=== PATIENT | female | born 1950 | race Caucasian/White ===

== ENCOUNTER 2019-11-21 10:27 | Outpatient (CLI) | payer MEDICARE, SELFPAY ==
--- NOTE | 2019-11-21 10:34 | EST_ITS ---
Patient Info Name: Josefa Curry Age: 69 years : 1950 Gender: Female Ht: 62 in Wt: 180 lbs BSA: 1.92 m2 Exam Date: 11/21/2019 10:46 AM Exam Location: [facility] Stress Patient Status: Outpatient Admit Date: 11/21/2019 Staff Ordering Physician: Sohail Charles MD Attending Provider: Sohail Charles MD Exercise Technologist: Jolynn Nicholson RDCS Nurse: Laurel Domingo, TED, ACNP- Exam Type: CA stress test treadmill Study Info Indications R07.9 - Chest pain, unspecified A treadmill exercise stress test was performed. Summary 1. Abnormal ST segment depression consistent with myocardial ischemia. 2. No exercise-induced chest pain. 3. Above average exercise capacity for age. Protocol: [place] Stress ECG Details Stage: REST Duration (min): 9 min : 7 sec Speed (mph): 0.0 Grade (%): 0 HR (bpm): 67 SBP (mmHg): 160 DBP (mmHg): 82 METS: --- Stage: REST Duration (min): 23 min : 14 sec Speed (mph): 0.0 Grade (%): 0 HR (bpm): 74 SBP (mmHg): 160 DBP (mmHg): 82 METS: --- Stage: STAGE 1 Duration (min): 1 min : 0 sec Speed (mph): 1.7 Grade (%): 10 HR (bpm): 94 SBP (mmHg): 160 DBP (mmHg): 82 METS: --- Stage: STAGE 1 Duration (min): 2 min : 0 sec Speed (mph): 1.7 Grade (%): 10 HR (bpm): 107 SBP (mmHg): 160 DBP (mmHg): 82 METS: --- Stage: STAGE 1 Duration (min): 3 min : 0 sec Speed (mph): 1.7 Grade (%): 10 HR (bpm): 110 SBP (mmHg): 160 DBP (mmHg): 82 METS: --- Stage: STAGE 2 Duration (min): 1 min : 0 sec Speed (mph): 2.5 Grade (%): 12 HR (bpm): 118 SBP (mmHg): 160 DBP (mmHg): 82 METS: --- Stage: STAGE 2 Duration (min): 2 min : 0 sec Speed (mph): 2.5 Grade (%): 12 HR (bpm): 121 SBP (mmHg): 185 DBP (mmHg): 88 METS: --- Stage: STAGE 2 Duration (min): 3 min : 0 sec Speed (mph): 2.5 Grade (%): 12 HR (bpm): 124 SBP (mmHg): 185 DBP (mmHg): 88 METS: --- Stage: STAGE 3 Duration (min): 1 min : 0 sec Speed (mph): 3.4 Grade (%): 14 HR (bpm): 133 SBP (mmHg): 183 DBP (mmHg): 88 METS: --- Stage: STAGE 3 Duration (min): 2 min : 0 sec Speed (mph): 3.4 Grade (%): 14 HR (bpm): 141 SBP (mmHg): 183 DBP (mmHg): 88 METS: --- Stage: STAGE 3 Duration (min): 3 min : 0 sec Speed (mph): 3.4 Grade (%): 14 HR (bpm): 145 SBP (mmHg): 185 DBP (mmHg): 81 METS: --- Stage: RECOVERY Duration (min): 0 min : 10 sec Speed (mph): 1.5 Grade (%): 0 HR (bpm): 145 SBP (mmHg): 185 DBP (mmHg): 81 METS: --- Stage: RECOVERY Duration (min): 0 min : 59 sec Speed (mph): 0.0 Grade (%): 0 HR (bpm): 120 SBP (mmHg): 171 DBP (mmHg): 77 METS: --- Stage: RECOVERY Duration (min): 1 m
== END 2019-11-21 10:28 | disposition home or self-care (01) ==
LOC: ANHCARD 10:30
PROVIDERS: PCP Family Medicine; Visit Provider Family Medicine
DX: R07.89 Other chest pain (principal)
CPT/HCPCS: 93017

== ENCOUNTER 2020-04-02 09:43 | Outpatient (CLI) | payer MEDICARE, SELFPAY ==
--- NOTE | ~2020-04-02 | MM_ITS ---
EXAMINATION: MM screening jo [facility] BI w sandra HISTORY: Screening mammogram TECHNIQUE: Craniocaudal and mediolateral oblique 3-D tomosynthesis images were obtained and synthetic 2-D images were generated. CAD analysis was submitted and interpreted. COMPARISON: 03/19/2019, 02/19/2018, 02/16/2017 bilateral digital screening mammogram examinations BREAST PARENCHYMAL COMPOSITION: There are scattered areas of fibroglandular density. FINDINGS: There is no evidence of suspicious mass, calcification, or architectural distortion to sugg est malignancy in either breast. There has been no suspicious interval change. IMPRESSION: 1. No mammographic evidence of malignancy. 2. Recommend routine screening mammography in one year. BI-RADS Category 1: Negative Reviewed, dictated and finalized at location A.
== END 2020-04-02 09:44 | disposition home or self-care (01) ==
PROVIDERS: PCP Family Medicine; Visit Provider Obstetrics & Gynecology Gynecology
DX: Z12.31 Encounter for screening mammogram for malignant neoplasm of breast (principal)
CPT/HCPCS: 77063; 77067

== ENCOUNTER 2020-06-13 02:02 | Outpatient (CLI) | payer MEDICARE, SELFPAY ==
[2020-06-13 20:09] LABS: SARS-CoV-2 RNA PCR Negative
== END 2020-06-13 02:03 | disposition home or self-care (01) ==
LOC: ANHCOVIDDT 02:02
PROVIDERS: PCP Family Medicine; Visit Provider Internal Medicine Gastroenterology
DX: Z01.812 Encounter for preprocedural laboratory examination (principal); Z20.822 Contact with and (suspected) exposure to COVID-19
CPT/HCPCS: C9803; U0003

== ENCOUNTER 2020-06-17 01:36 | Day surgery (SDC) | payer MEDICARE, SELFPAY ==
[2020-06-01 14:14] VITALS: BMI 31.4
[2020-06-17 08:19] VITALS: BP 125/73; PULSE 86; RESP 18; TEMP 36.6; O2SAT 96
[2020-06-17] MEDS: LACTATED RINGERS 1,000 ML 150 ML IV CONT (08:28)
--- NOTE | 2020-06-17 09:14 | WPDANESEPPF ---
Anes - Initial Pre Proc Eval Procedure: Operation Date: 06/17/20 09:15 Proposed Procedures p Screening Colonoscopy - Nick Rodriguez MD Date/Time: 06/17/20 09:14 Surgeon: Nick Rodriguez MD Pre Op Diagnosis: Neoplasm Screening Patient Data Age: 69 Gender: F Height: 5 ft 2 in Weight: 77.5 kg Last Vital Signs Temp 97.8 F 06/17/20 08:19 Pulse 86 06/17/20 08:19 Resp 18 06/17/20 08:19 BP 125/73 06/17/20 08:19 Pulse Ox 96 06/17/20 08:19 Allergies Allergy/AdvReac Type Severity Reaction Status Date / Time Iodinated Contrast Media Allergy Intermediate SHORT OF Verified 06/17/20 08:17 BREATH levofloxacin Allergy Intermediate Joint pain Verified 06/17/20 08:17 Home Medications Medication Instructions Recorded Confirmed Type levothyroxine 25 mcg capsule 25 mcg PO DAILY 05/17/19 06/01/20 History omeprazole 40 mg capsule,delayed 40 mg PO DAILY 05/17/19 06/01/20 History release polyethylene glycol 3350 17 17 gm PO DAILY 05/17/19 06/01/20 History gram/dose oral powder nitroglycerin 0.4 mg sublingual 0.4 mg SUBLINGUAL Q5M PRN #30 11/21/19 06/01/20 Rx tablet tablet ascorbic acid (vitamin C) 1,000 mg 1 gm PO DAILY 02/18/20 06/01/20 History tablet metoprolol succinate 25 mg 25 mg PO DAILY #90 tablet 03/09/20 06/01/20 Rx tablet,extended release 24 hr LIrwin ire[place]-LIrwin tellez-Nica hall-L. rham 1 cap PO DAILY 06/01/20 06/01/20 History [AZO Complete Feminine Balance] aspirin [Adult Low Dose Aspirin] 81 mg PO DAILY 06/01/20 06/01/20 History atorvastatin 10 mg PO DAILY 06/01/20 06/01/20 History calcium carbonate-vitamin D3 1 tablet PO DAILY 06/01/20 06/01/20 History [Calcium with Vitamin D] Patient hx anesthesia problems: none Family hx anesthesia problems: none PMFSH Past Medical History Medical History (Updated 06/17/20 @ 09:13 by Дмитрий Aj MD) Atrial flutter Chronic cystitis without hematuria Hypertension Hypothyroidism Mixed hyperlipidemia Surgical History Surgical History Status post hemorrhoidectomy Status post hysterectomy Status post laparoscopic cholecystectomy Status post tubal ligation Family History Family History Mother Hypertension Carcinoma of colon Family history of diabetes mellitus in first degree relative Diabetes mellitus Patient's mother is in good health Family history of elevated blood lipids Father Family history of elevated blood lipids Family history of coronary artery disease Diabetes mellitus, Onset Age: 77 Hypertension, Onset Age: 77 Family history of cardiovascular disease, Onset Age: 77 Acute myocardial infarction, Onset Age: 75 Sibling Family history of pancreatic cancer, Onset Age: 54 Patient's brother is Diabetes mellitus Hypertension Other Family history of thyroid disease Social History Social History Smoking packs per day: 1 Smoking cigarettes per day: 20.0 Years smoked: 15 Smoking pack-years: 15.00 Smoking status: Former smoker Tobacco type: cigarettes Second hand tobacco smoke exposure: No Smoking end date: 06/12/93 Alcohol intake: current Drinks per week: 0 Substance use: never Substance use type: does not use Gender identity (if verbalized by the patient): Female Spiritual care concerns: No Anes - Eval Final PreProcedure Day of Procedure 06/17/20 09:14 Patient weight: overweight Heart: regular rate and rhythm Lungs: clear to auscultation Airway: Mallampati scale class II Neurological: alert and oriented Last oral intake: >/= 8 hours ASA classification: III Emergent: no Anesthetic plan: proceed Anesthesia type and monitoring: general GIVS and standard monitoring Informed Consent: The patient's anesthetic plan and its attendant risks and b
--- NOTE | 2020-06-17 09:38 | PM.HPGS ---
History of Present Illness History of Present Illness Consent: Risks, benefits, and alternatives have been discussed and questions answered. Patient agrees to proceed with procedure. Chief complaint: Neoplasm Screening Narrative: Josefa Curry is a 69 year old female with colon polyps 2016 and mother with colon cancer. Review of Systems Constitutional: Constitutional: Denies headache(s) and Denies weakness Eyes: Eyes: Denies blurry vision ENT: Reports Normal hearing present, Denies headache(s) and Denies neck pain Cardiovascular: Cardiovascular: Denies chest pain and Denies dyspnea Respiratory: Respiratory: Denies dyspnea Gastrointestinal: Gastrointestinal: Reports no additional gastrointestinal complaints Genitourinary: Genitourinary: Denies dysuria Musculoskeletal: Musculoskeletal: Denies neck pain Integumentary/Breasts: Skin/Breast: Denies dry skin Neurologic: Reports Normal hearing present, Denies headache(s) and Denies weakness Psychiatric: Psychiatric: Denies anxiety Endocrine: Endocrine: Denies change in body appearance Hematologic/Lymphatic: Hematologic/Lymphatic: Denies easy bleeding Allergic/Immunologic: Allergic/Immunologic: Denies urticaria PMFSH Past Medical History Medical History (Updated 06/17/20 @ 09:38 by Nick Rodriguez MD) Atrial flutter Chronic cystitis without hematuria Family history of colon cancer in mother Hypertension Hypothyroidism Mixed hyperlipidemia Surgical History Surgical History Status post hemorrhoidectomy Status post hysterectomy Status post laparoscopic cholecystectomy Status post tubal ligation Family History Family History Mother Hypertension Carcinoma of colon Family history of diabetes mellitus in first degree relative Diabetes mellitus Patient's mother is in good health Family history of elevated blood lipids Father Family history of elevated blood lipids Family history of coronary artery disease Diabetes mellitus, Onset Age: 77 Hypertension, Onset Age: 75 Family history of cardiovascular disease, Onset Age: 77 Acute myocardial infarction, Onset Age: 75 Sibling Family history of pancreatic cancer, Onset Age: 54 Patient's brother is Diabetes mellitus Hypertension Other Family history of thyroid disease Social History Social History Smoking packs per day: 1 Smoking cigarettes per day: 20.0 Years smoked: 15 Smoking pack-years: 15.00 Smoking status: Former smoker Tobacco type: cigarettes Second hand tobacco smoke exposure: No Smoking end date: 06/12/93 Alcohol intake: current Drinks per week: 0 Substance use: never Substance use type: does not use Gender identity (if verbalized by the patient): Female Spiritual care concerns: No Meds Home Medications and Allergies Home Medications Medication Instructions Recorded Confirmed Type levothyroxine 25 mcg capsule 25 mcg PO DAILY 05/17/19 06/01/20 History omeprazole 40 mg capsule,delayed 40 mg PO DAILY 05/17/19 06/01/20 History release polyethylene glycol 3350 17 17 gm PO DAILY 05/17/19 06/01/20 History gram/dose oral powder nitroglycerin 0.4 mg sublingual 0.4 mg SUBLINGUAL Q5M PRN #30 11/21/19 06/01/20 Rx tablet tablet ascorbic acid (vitamin C) 1,000 mg 1 gm PO DAILY 02/18/20 06/01/20 History tablet metoprolol succinate 25 mg 25 mg PO DAILY #90 tablet 03/09/20 06/01/20 Rx tablet,extended release 24 hr Nica ulndberg 1 cap PO DAILY 06/01/20 06/01/20 History [AZO Complete Feminine Balance] aspirin [Adult Low Dose Aspirin] 81 mg PO DAILY 06/01/20 06/01/20 History atorvastatin 10 mg PO DAILY 06/01/20 06/01/20 History calcium carbonate-vitamin D3 1 tablet PO DAILY 06/01/20 06/01/20 History [Calcium with
[2020-06-17 10:01] VITALS: BP 128/98; PULSE 71; RESP 22; O2SAT 96
[2020-06-17 10:11] VITALS: BP 118/78; PULSE 69; RESP 15; O2SAT 99
[2020-06-17 10:21] VITALS: BP 129/71; PULSE 69; RESP 12; O2SAT 99
== END 2020-06-17 10:32 | disposition home or self-care (01) ==
PROVIDERS: PCP Family Medicine; Visit Provider Internal Medicine Gastroenterology
PROC: 0DJD8ZZ Inspection of Lower Intestinal Tract, Via Natural or Artificial Opening Endoscopic (ICD-10-PCS; CPT 45378; principal; 2020-06-17 09:15)
DX: Z12.11 Encounter for screening for malignant neoplasm of colon (principal); K64.8 Other hemorrhoids; Z86.010 Personal history of colon polyps; Z80.0 Family history of malignant neoplasm of digestive organs; I48.92 Unspecified atrial flutter; I10 Essential (primary) hypertension; E03.9 Hypothyroidism, unspecified; E78.2 Mixed hyperlipidemia; Z87.891 Personal history of nicotine dependence; Z79.82 Long term (current) use of aspirin
CPT/HCPCS: G0105; J2704; J7120

== ENCOUNTER → 2020-06-18 12:41 | Outpatient (CLI) | payer MEDICARE, SELFPAY ==
--- NOTE | ~2020-06-18 | XR_ITS ---
XR abdomen/kub 1V 06/18/2020 12:55 Indication: Chronic cystitis. Procedure: KUB Comparison: Comparison to multiple prior studies sequentially, with oldest reviewed study dated 04/12. Findings: Bowel gas pattern is nonobstructive with moderate colonic fecal loading. There are phleboli ths in the right abdomen L5 level and also in the pelvis. There is benign calcification in the left p nathanael. No definite renal stones. There are cholecystectomy clips.. Lung bases unremarkable. There is osteitis pubis. Mild lumbar spondylosis. Impression: 1: No acute abdominal abnormality. Reviewed, dictated and finalized at location A. LOADER Impression: 1: No acute abdominal abnormality.
--- NOTE | ~2020-06-18 | CT_ITS ---
EXAMINATION: CT abdomen pelvis wo con DATE: 06/18/2020 13:05 INDICATION: Chronic cystitis, urinary tract infections. Colonoscopy yesterday. Status post cholecyste ctomy. TECHNIQUE: Computed tomography (CT) of the abdomen and pelvis was performed without intravenous contr ast. Automated exposure control and iterative reconstruction technique were employed. Exam dose: 844 .09 mGy-cm total exam DLP. COMPARISON: 05/01/2015 CT abdomen pelvis FINDINGS: The lung bases are clear of infiltrate or consolidation. Mild discoid atelectasis or more l ikely scarring at the lung bases. Normal heart size. No pericardial or pleural effusion. Status post cholecystectomy. Approximately 1 cm hepatic dome cyst. The liver is otherwise unremarkable. Normal splenic size. No bi le duct dilatation, pancreatic duct dilatation. No pancreatic mass lesion or calcification. Normal morphology of the adrenal glands. No renal mass lesion or urinary tract calculus or hydroureteronephrosis is evident. 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 No bladder wall thickening is evident. Status post hysterectomy. Normal caliber of the abdominal aorta. No intraperitoneal or retroperitoneal or pelvic mass lesion or adenopathy or ascites is detected. No evidence of appendicitis. No bowel obstruction, bowel wall thickening, pneumatosis or intraperiton eal free air is detected. No suspicious osteolytic or osteoblastic lesions are noted. There is grade 1 anterolisthesis at L4-5 due to degenerative change at the apophyseal joints. IMPRESSION: Marked right urinary bladder diverticulum is again noted 1 cm hepatic dome cyst Status post cholecystectomy Status post hysterectomy Reviewed, dictated and finalized at Location A. Reviewed, dictated and finalized at location B. CH ADJUSTER
== END ==
PROVIDERS: PCP Family Medicine; Visit Provider Nurse Practitioner Adult Health
DX: N30.20 Other chronic cystitis without hematuria (principal); N32.3 Diverticulum of bladder; Z90.49 Acquired absence of other specified parts of digestive tract
CPT/HCPCS: 74018; 74176

== ENCOUNTER → 2021-01-21 10:21 | Outpatient (CLI) | payer MEDICARE, SELFPAY ==
--- NOTE | ~2021-01-21 | US_ITS ---
EXAMINATION: US thyroid DATE: 01/21/2021 10:40 INDICATION: Nontoxic multinodular goiter. TECHNIQUE: Multiple ultrasound images of the thyroid were obtained. COMPARISON: Ultrasound 12/30/2016, 11/29/2012 FINDINGS: The right thyroid lobe measures 3.9 x 1.0 x 1.3 cm. The left thyroid lobe measures 3.2 x 1.2 x 1.0 c m. In the right thyroid lobe, there is a 5 mm solid, hypoechoic, [id number] nodule with smooth margin without echogenic foci (TI-RADS TR4). In the right thyroid lobe, there is a 4 mm nodule. In th e left thyroid lobe, there is a 7 mm solid, hypoechoic, ejyhf-[id number] nodule with ill-defined frank n with macrocalcifications (TR4). IMPRESSION: 1. Small thyroid nodules, likely not clinically significant. No follow-up is needed. Reviewed, dictated and finalized at location A. IMPRESSION: 1. Small thyroid nodules, likely not clinically significant. No follow-up is ne eded.
== END ==
PROVIDERS: PCP Family Medicine; Visit Provider Internal Medicine
DX: E04.2 Nontoxic multinodular goiter (principal)
CPT/HCPCS: 76536

== ENCOUNTER 2021-04-27 15:55 | Outpatient (CLI) | payer MEDICARE, SELFPAY ==
--- NOTE | ~2021-04-27 | MM_ITS ---
EXAMINATION: MM screening [facility] BI w sandra HISTORY: Screening mammogram TECHNIQUE: Craniocaudal and mediolateral oblique 3-D tomosynthesis images were obtained and synthetic 2-D images were generated. CAD analysis was submitted and interpreted. COMPARISON: 04/02/2020, 03/29/2019 BREAST PARENCHYMAL COMPOSITION: There are scattered areas of fibroglandular density. FINDINGS: There is no evidence of suspicious mass, calcification, or architectural distortion to sugg est malignancy in either breast. There has been no suspicious interval change. IMPRESSION: 1. No mammographic evidence of malignancy. 2. Recommend routine screening mammography in one year. BI-RADS Category 1: Negative Reviewed, dictated and finalized at location A. RD KEEPER
== END 2021-04-27 15:56 | disposition home or self-care (01) ==
LOC: ANHIMG 15:57
PROVIDERS: PCP Family Medicine; Visit Provider Nurse Practitioner
DX: Z12.31 Encounter for screening mammogram for malignant neoplasm of breast (principal)
CPT/HCPCS: 77063; 77067

== ENCOUNTER 2021-05-17 08:43 | Outpatient (CLI) | payer MEDICARE, SELFPAY ==
--- NOTE | ~2021-05-17 | DEXA_ITS ---
Bone Density Report Name: Josefa Curry Age: 70 Sex: Female Ethnicity: White Date of : 1950 Indication: postmenopausal; parental hip fracture; hysterectomy; Referring Provider: MARY BETH CABALLERO Study: Bone densitometry was performed. Exam Date: May 17, 2021 Accession number: [id number] Bone Density: Region BMD T-score Z-score Classification AP Spine (L1-L4) 1.036 -0.1 2.2 Normal Femoral Neck (Left) 0.783 -0.6 1.4 Normal Total Hip (Left) 0.981 0.3 2.0 Normal Total Hip Bilateral Avg 0.971 0.2 1.9 Normal Femoral Neck (Right) 0.858 0.1 2.0 Normal Total Hip (Right) 0.960 0.1 1.8 Normal World Health Organization criteria for BMD impression classify patients as: Normal (T-score at or above -1.0), Osteopenia (T-score between -1.0 and -2.5), or Osteoporosis (T-score at or below -2.5). 10-year Fracture Risk: FRAX not reported because: All T-scores for Spine Total, Hip Total, Femoral Neck at or above -1.0 Previous Exams: Region Exam Age BMD T-score BMD Change BMD Change Date g/cm2 vs Baseline vs Previous AP Spine(L1-L4) 05/17/2021 70 1.036 -0.1 0.042(4.3%)# 0.018(1.8%) 02/16/2016 65 1.018 -0.3 0.024(2.5%)# 0.004(0.4%) 01/30/2014 63 1.013 -0.3 0.020(2.0%)# 0.020(2.0%)# 09/20/2010 60 0.993 -0.5 Total Hip(Left) 05/17/2021 70 0.981 0.3 0.030(3.2%)# -0.001(-0.1%) 08/09/2018 68 0.982 0.3 0.031(3.3%)# -0.010(-1.0%) 02/16/2016 65 0.991 0.4 0.041(4.3%)# 0.024(2.5%) 01/30/2014 63 0.967 0.2 0.017(1.7%)# 0.017(1.7%)# 09/20/2010 60 0.951 0.1 Total Hip(Right) 05/17/2021 70 0.960 0.1 -0.044(-4.4%)# -0.050(-5.0%)* 08/09/2018 68 1.010 0.6 0.006(0.6%)# 0.023(2.3%) 02/16/2016 65 0.987 0.4 -0.017(-1.6%)# -0.013(-1.3%) 01/30/2014 63 1.000 0.5 -0.003(-0.3%)# -0.003(-0.3%)# 09/20/2010 60 1.004 0.5 *Denotes significance at 95% confidence level, LSC for AP Spine = 0.022 g/cm2, LSC for Total Hip = 0.027 g/cm2 Clinical Information Provided by Patient: Parent has had a hip fracture Has used the following medications: HRT (i.e. estrogen/hormone therapy), Vitamin D, Calcium Has the following medical conditions: Hysterectomy Patient maximum height was 62 Menopause Age: 40 Drinks caffeinated beverages Onset of menses at age 10 Number of children 2 Impression: The patient has normal bone mass. The patient has risk factors, including: elaine
== END 2021-05-17 08:44 | disposition home or self-care (01) ==
PROVIDERS: PCP Family Medicine; Visit Provider Obstetrics & Gynecology Gynecology
DX: Z78.0 Asymptomatic menopausal state (principal)
CPT/HCPCS: 77080

== ENCOUNTER → 2021-08-05 00:24 | Outpatient (CLI) | payer MEDICARE, SELFPAY ==
[2021-08-05 11:32] LABS: Influenza A QL RT-PCR Negative (Negative); Influenza B QL RT-PCR Negative (Negative); SARS-CoV-2 RNA PCR Negative
== END ==
PROVIDERS: PCP Family Medicine; Visit Provider Physician Assistant
DX: R50.9 Fever, unspecified (principal); R05.9 Cough, unspecified; Z20.822 Contact with and (suspected) exposure to COVID-19
CPT/HCPCS: 87502; C9803; U0003; U0005

== ENCOUNTER → 2021-08-12 11:54 | Outpatient (CLI) | payer MEDICARE, SELFPAY ==
--- NOTE | ~2021-08-12 | XR_ITS ---
XR chest 2V 08/12/2021 12:15 Indication: Fever Procedure: 2 view chest Comparison: 10/07/2016 Findings: There is patchy infiltrates of the mid and lower lungs, consistent with pneumonia. Heart si ze normal. No pleural effusion or pneumothorax. No acute osseous abnormality. Impression: 1: Patchy bilateral airspace disease, compatible with pneumonia. Reviewed, dictated and finalized at location A. S REPRESENTATIVE HEALTH INSURANCE Impression: 1: Patchy bilateral airspace disease, compatible with pneumonia.
== END ==
PROVIDERS: PCP Nurse Practitioner Family; Visit Provider Nurse Practitioner Family
DX: R50.9 Fever, unspecified (principal)
CPT/HCPCS: 71046

== ENCOUNTER → 2022-05-04 12:09 | Outpatient (CLI) | payer MEDICARE, SELFPAY ==
--- NOTE | ~2022-05-04 | MM_ITS ---
EXAMINATION: MM screening jo ann BI w sandra HISTORY: Screening mammogram TECHNIQUE: Craniocaudal and mediolateral oblique 3-D tomosynthesis images were obtained and synthetic 2-D images were generated. CAD analysis was submitted and interpreted. COMPARISON: 04/27/2021, 04/02/2020, 03/19/2019 bilateral screening mammogram examinations BREAST PARENCHYMAL COMPOSITION: There are scattered areas of fibroglandular density. FINDINGS: There is no evidence of suspicious mass, calcification, or architectural distortion to sugg est malignancy in either breast. There has been no suspicious interval change. IMPRESSION: 1. No mammographic evidence of malignancy. 2. Recommend routine screening mammography in one year. BI-RADS Category 1: Negative Reviewed, dictated and finalized at location A. SANDER OFFBEARER
== END ==
PROVIDERS: PCP Family Medicine; Visit Provider Obstetrics & Gynecology Gynecology
DX: Z12.31 Encounter for screening mammogram for malignant neoplasm of breast (principal)
CPT/HCPCS: 77063; 77067

== ENCOUNTER → 2022-06-08 13:55 | Outpatient (CLI) | payer MEDICARE, SELFPAY ==
--- NOTE | ~2022-06-08 | DEXA_ITS ---
Bone Density Report Name: RICKY GASPAR Age: 71 Sex: Female Ethnicity: White Date of : 1950 Indication: postmenopausal; screening for osteoporosis; history of glucocorticoids; hysterectomy; Referring Provider: MICKY, GHISLAINE Study: Bone densitometry was performed. Exam Date: June 08, 2022 Accession number: [id number] Bone Density: Region BMD T-score Z-score Classification AP Spine (L1-L4) 1.025 -0.2 2.1 Normal Femoral Neck (Left) 0.905 0.5 2.5 Normal Total Hip (Left) 0.960 0.2 1.9 Normal Femoral Neck (Right) 0.989 1.3 3.3 Normal Total Hip (Right) 0.937 0.0 1.7 Normal Total Hip Mean 0.949 0.1 1.8 Normal World Health Organization criteria for BMD impression classify patients as: Normal (T-score at or above -1.0), Osteopenia (T-score between -1.0 and -2.5), or Osteoporosis (T-score at or below -2.5). 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 The patient has risk factors, including: history of glucocorticoid therapy. Discussion: LOW RISK OF FRACTURE; BONE DENSITY IS WELL ABOVE THE MINIMUM DESIRABLE LEVEL AND ABOVE AVERAGE FOR AGE AND SEX AT ALL SKELETAL SITES TESTED. This person's bone density is above expected limits for age and sex. This is rarely clinically significant, but should be pursued if there are significant musculoskeletal complaints. The patient should follow a healthful lifestyle (good nutrition with adequate calcium and vitamin D, and appropriate weight-bearing exercise). Follow-Up: Consider repeating this study in 5 years or sooner if there is some new clinical indication. Reported by: IZABEL on 06/08/2022 2:49:00 PM. Reviewed, dictated and finalized at location AIrwin RODRÍGUEZ
== END ==
PROVIDERS: PCP Family Medicine; Visit Provider Internal Medicine Rheumatology
DX: Z78.0 Asymptomatic menopausal state (principal); Z79.52 Long term (current) use of systemic steroids
CPT/HCPCS: 77080

== ENCOUNTER → 2022-07-22 12:09 | Outpatient (CLI) | payer MEDICARE, SELFPAY ==
--- NOTE | ~2022-07-22 | US_ITS ---
EXAMINATION: US soft tissue head and neck DATE: 07/22/2022 12:34 INDICATION: Localized swelling, mass and lump, head. TECHNIQUE: Multiple grayscale and Doppler ultrasound images of the neck were obtained. COMPARISON: Thyroid ultrasound 01/21/2021 FINDINGS: There is no abnormal mass or lymphadenopathy in the patient's area of concern in right neck . IMPRESSION: 1. No abnormal mass or lymphadenopathy in the patient's area of concern in right neck. Reviewed, dictated and finalized at location A. TH ASSESSMENT AND TREATMENT TEACHER IMPRESSION: 1. No abnormal mass or lymphadenopathy in the patient's area of concern in righ t neck.
== END ==
PROVIDERS: PCP Physician Assistant; Visit Provider Physician Assistant
DX: R22.0 Localized swelling, mass and lump, head (principal)
CPT/HCPCS: 76536

== ENCOUNTER → 2022-07-25 13:48 | Outpatient (CLI) | payer MEDICARE, SELFPAY ==
--- NOTE | ~2022-07-25 | XR_ITS ---
EXAMINATION:XR cervical spine min 6V DATE: 07/25/2022 14:24 INDICATION: Neck pain TECHNIQUE: AP, lateral in neutral, flexion, extension, lateral swimmers and odontoid views of the cer vical spine are provided. COMPARISON: None FINDINGS: There are 5 mm of anterolisthesis of C7 on T1. No hypermobility is present with flexion or extension. The odontoid process is intact. No fracture is identified. There is moderate loss of inter vertebral disc space height at C5-6 and C6-7. Small degenerative osteophytes project from the anterio r endplates of multiple vertebral bodies. There is multilevel severe facet and uncovertebral joint os teoarthritis. Prevertebral soft tissues are normal. IMPRESSION: 1. Severe cervical spondylosis without acute findings. Reviewed, dictated and finalized at location B. IGHT RULING MACHINE OPERATOR
--- NOTE | ~2022-07-25 | XR_ITS ---
EXAMINATION: XR shoulder LT min 2V INDICATION: Left shoulder pain TECHNIQUE: Four views of the left shoulder are obtained on five radiographs. COMPARISON: None FINDINGS: Normal alignment. No fracture. There is mild osteoarthritis of the glenohumeral and acromio clavicular joints. Soft tissues are unremarkable. IMPRESSION: 1. Mild osteoarthritis. Reviewed, dictated and finalized at location B. RVISOR PUBLIC MESSAGE SERVICE IMPRESSION: 1. Mild osteoarthritis.
--- NOTE | ~2022-07-25 | XR_ITS ---
EXAMINATION: XR shoulder RT min 2V INDICATION: Right shoulder pain TECHNIQUE: Four views of the right shoulder are submitted. COMPARISON: None FINDINGS: Normal alignment. No fracture. There is mild osteoarthritis of the glenohumeral joint and m oderate osteoarthritis of the acromioclavicular joint. Soft tissues are unremarkable. IMPRESSION: 1. Osteoarthritis without acute osseous abnormality. Reviewed, dictated and finalized at location B. AND BEVERAGE SERVICE MANAGER
== END ==
PROVIDERS: PCP Family Medicine; Visit Provider Physician Assistant
DX: M54.2 Cervicalgia (principal); M25.512 Pain in left shoulder; M25.511 Pain in right shoulder; M43.02 Spondylolysis, cervical region; M19.012 Primary osteoarthritis, left shoulder; M19.011 Primary osteoarthritis, right shoulder
CPT/HCPCS: 72052; 73030

== ENCOUNTER → 2023-02-08 12:39 | Outpatient (CLI) | payer MEDICARE, SELFPAY ==
--- NOTE | ~2023-02-08 | US_ITS ---
EXAMINATION: US retroperitoneal comp DATE: 02/08/2023 13:01 INDICATION: UTI TECHNIQUE: Multiple grayscale and Doppler ultrasound images of the kidneys were obtained. COMPARISON: CT abdomen pelvis 06/18/2020. FINDINGS: The right kidney measures 10.6 x 4.1 x 5.1 cm. The left kidney measures 10.9 x 4.6 x 5.6 cm. The kidn eys demonstrate normal parenchymal echogenicity. There is no hydronephrosis. The bladder contains a l arge diverticulum measuring up to 6.2 cm but otherwise appears normal. IMPRESSION: Large urinary bladder diverticulum. Otherwise normal renal sonogram findings. Reviewed, dictated and finalized at location K.
== END ==
PROVIDERS: PCP Nurse Practitioner Adult Health; Visit Provider Nurse Practitioner Adult Health
DX: N39.0 Urinary tract infection, site not specified (principal)
CPT/HCPCS: 76770

== ENCOUNTER → 2023-05-10 11:57 | Outpatient (CLI) | payer MEDICARE, SELFPAY ==
--- NOTE | ~2023-05-10 | MM_ITS ---
EXAMINATION: MM screening jo ann BI w sandra HISTORY: Screening mammogram TECHNIQUE: Craniocaudal and mediolateral oblique 3-D tomosynthesis images were obtained and synthetic 2-D images were generated. CAD analysis was submitted and interpreted. COMPARISON: 05/04/2022, 04/27/2021, 04/02/2020 bilateral screening mammogram examinations BREAST PARENCHYMAL COMPOSITION: There are scattered areas of fibroglandular density. FINDINGS: There is no evidence of suspicious mass, calcification, or architectural distortion to sugg est malignancy in either breast. There has been no suspicious interval change. IMPRESSION: 1. No mammographic evidence of malignancy. 2. Recommend routine screening mammography in one year. BI-RADS Category 1: Negative Reviewed, dictated and finalized at location A. T TECH
== END ==
PROVIDERS: PCP Family Medicine; Visit Provider Nurse Practitioner
DX: Z12.31 Encounter for screening mammogram for malignant neoplasm of breast (principal)
CPT/HCPCS: 77063; 77067

== ENCOUNTER 2024-01-24 15:33 | Outpatient (CLI) | payer OTHER, SELFPAY ==
--- NOTE | ~2024-01-24 | XR_ITS ---
[id number] Ordering provider: Sohail Charles MD History: . M54.2 - Cervicalgia . Comparison: None. FINDINGS: VERTEBRAL BODIES: Normal height and alignment. No visible fracture or subluxation. The dens is intact . Minimal anterolisthesis at the level of C7-T1. DISK SPACES: Degenerative disc disease at the level of C4-C5, C5-C6 and C6-C7. facet joint disease at the levels of C2-C3, C3-C4 and C4-C5. Uncovertebral joint osteoarthritic changes at multiple levels. PARASPINOUS SOFT TISSUES: No prevertebral soft tissue swelling. IMPRESSION: No acute osseous abnormality cervical spine. Multilevel degenerative disc disease. Reviewed, dictated and finalized at location A.
== END 2024-01-24 15:34 ==
PROVIDERS: PCP Family Medicine; Visit Provider Family Medicine
DX: M50.30 Other cervical disc degeneration, unspecified cervical region (principal)
CPT/HCPCS: 72040

== ENCOUNTER 2024-04-19 07:51 | Outpatient (CLI) | payer OTHER, SELFPAY ==
--- NOTE | 2024-05-11 12:14 | P.SLEEP_ITS ---
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 Sleep History Josefa Curry is a 73-year-old woman with known obstructive sleep apnea, compliant with CPAP. She has collagen vascular associated interstitial lung disease, on CellCept and supplemental oxygen 2 L around the clock including with sleep and her APAP. She occasionally awakens from sleep feeling short of breath. She frequently awakens at night with heartburn, belching or coughing. She rarely snores, never loudly enough that others complain about it. She rarely has difficulty sleeping with a cold. She occasionally wakes up gasping for breath at night. She occasionally has breathing problems at night observed by others. She does not sweat excessively at night or notice her heart pounding or beating irregularly at night. She does not fall asleep during the day, does not fall asleep involuntarily or while driving. She does not have loss of muscle tone with strong emotion. She never has daytime difficulties due to excessive sleepiness. She does not feel paralyzed on waking or falling asleep. She rarely has vivid dreamlike scenes upon awakening or falling asleep. She rarely feels afraid to go to sleep. She does not have nightmares. She occasionally remembers her dreams. She does not feel sad or depressed. She occasionally feels anxiety. She does not notice parts of her body jerking. She never kicks at night. She occasionally has crawling and aching feelings in her legs at night. She occasionally has leg pain during the night. She does not have morning jaw pain, does not grind her teeth during sleep. She is not bothered by pain during the day. She occasionally is awakened by pain at night. She occasionally wakes up feeling stiff in the morning. She occasionally wakes up with sore achy muscles. She always wakes up with pain in the neck and spine. She has fatigue. Her normal bedtime is 10:00 p.m., falling asleep within 1 hour, typically waking 3-4 times at night. While awake, she goes to the bathroom. Her awakenings may last between 1/2 hour to an hour. These awakenings occur soon after falling asleep and in the middle of the night. Her normal wake time is 8:00 a.m.. She keeps the same schedule on weekends. She estimates getting 8 hours of sleep at night. She takes naps in the afternoon or evening. A short nap lasting 10-15 minutes may be refreshing. She normally feels rested on awakening. She feels better in the morning compared to other times a day. 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 Mixed hyperlipidemia DEE (obstructive sleep apnea) Pulmonary embolism Surgical History Surgical History Status post hemorrhoidectomy Status post hysterectomy Status post laparoscopic cholecystectomy Status post tubal ligation Family History Family History Mother Hypertension Carcinoma of colon Family history of diabetes mellitus in first degree relative Diabetes mellitus Patient's mother is in good health Family history of elevated blood lipids Father Family history of elevated blood lipids Family history of coronary artery disease Diabetes mellitus, Onset Age: 77 Hypertension, Onset Age: 77 Family history of cardiovascular disease, Onset Age: 77 Acute myocardial infarction, Onset Age: 75 Sibling Family history of pancreatic cancer, Onset Age: 54 Patient's brother is Diabetes mellitus Hypertension Other Family history of thyroid disease Social History Social History Smoking packs per day: 1 Smoking cigarettes per day: 20.0 Years smoked: 15 Smoking pack-years: 15.00 Smoking status: Former smoker Tobacco type: cigarettes Second hand tobacco smoke exposure: No Smoking end date: 06/12/93 Alcohol intake: current Drinks per week: 0 Alcohol use details: every couple months Substance use: never Substance use type: does not use Lack of Transportation: No Lack of Food: Never True Current Housing: I Have Housing Concerned About Future Housing: No Difficulty Paying Gas/Electric Bills: No Difficulty Paying for Meds: No Education: High School Diploma/GED Difficulty w/ Childcare or Family Care: No Living arrangements: with family Occupation/Education: retired Gender identity (if verbalized by the patient): Female Spiritual care concerns: No Medications Home Medications Medication Instructions Recorded Confirmed Type polyethylene glycol 3350 17 17 gm PO DAILY 05/17/19 03/07/24 History gram/dose oral powder (Miralax) aspirin 81 mg tablet 81 mg PO DAILY 06/01/20 03/07/24 History mycophenolate mofetil 500 mg 500 mg PO Q12H #60 tabs 01/25/22 03/07/24 Rx tablet (CellCept) Lactobacillus 25 billion cap PO 01/25/23 03/07/24 History cell-Bifido 25 billion [id number] capsule ascorbate calcium (vitamin C) 500 500 mg PO DAILY 01/25/23 03/07/24 History mg tablet levothyroxine 25 mcg tablet 25 mcg PO DAILY #90 tabs 02/15/24 03/07/24 Rx atorvastatin 10 mg tablet 10 mg PO DAILY #90 tabs 03/29/24 Rx pantoprazole 40 mg tablet,delayed 40 mg PO QAM #90 tabs 03/29/24 Rx release Sleep Procedure A full CPAP polysomnogram using the [employer] SleepMeuugame multi-channel system recorded the standard physiologic parameters including EEG, EOG, submentalis EMG, anterior tibialis EMG, EKG, body position, nasal and oral airflow using nasal pressure sensor and thermistor. Respiratory parameters of chest and ab dominal movements were recorded with Respiratory Inductance Plethysmography belts. Oxygen saturation was recorded by pulse oximetry. Video monitoring was also performed. Sleep stages, periodic limb movements, and EEG arousals were scored in 30 second epochs according to the criteria of the AASM Scoring Manual. The Apnea-Hypopnea Index was calculated using CMS guidelines for definition of hypopnea while scoring respiratory events. The patient was started on CPAP using ResMed AirFit P 30 I nasal pillows for the study, and the study was conducted on room air. Pressure was titrated from 5 cm, 7 cm, then 9 cm water pressure. The minimum saturation during the night was 87%. At 9 cm, the patient spent 170 minutes in bed, 53.5 minutes awake, 99 minutes in non-REM and 17.5 minutes in REM. Sleep efficiency was 68.5%. The residual apnea-hypopnea index was 1.0 with a minimum saturation of 89%. The patient had supine REM at this setting. This is the optimal setting. The sleep tach recorded on the written record that the patient used a medium ResMed AirFit N 30 I mask however in the typed note in the computer, the mask was a medium ResMed AirFit P 30 I which was also the mass the patient uses at home. The tech checked the home mask on the patient and recorded a good fit. Sleep Architecture The total recording time was 453.2 minutes. The total sleep time was 330.5 minutes. Sleep latency was 29.4 minutes. REM latency was 231.0 minutes. Sleep efficiency was 72.9%. The patient had 28 awakenings for an awakening index of 5.1. Wake after Sleep Onset time was 93.0 minutes. The patient spent 36.0 minutes, 10.9% of total sleep time in Stage N1. The patient spent 257.5 minutes, 77.9% in Stage N2. The patient spent no time in Stage N3. The patient spent 37.0 minutes, 11.2% in Stage REM. Respiratory Analysis The patient had 5 hypopneas, no obstructive apneas, 3 mixed apneas, and no central apneas for an overall Apnea Hypopnea Index of 1.5 events per hour. The REM Apnea Hypopnea Index was 11.4. The NREM Apnea Hypopnea Index was 0.2. The patient had a Central Apnea Hypopnea Index of 0. There were no Respiratory Effort Related Arousals. The Respiratory Disturbance Index is 2.4 events per hour. There was no evidence of Osiel-Marshall Respirations. The supine REM apnea-hypopnea index was 11.4. Supine AHI was 2.9, nonsupine AHI is 0. Arousals There were 67 total arousals for an arousal index of 12.2. There were 25 spontaneous arousals for an index of 4.5. There were no arousals due to respiratory events. There were 31 arousals due to periodic limb movements for an index of 5.6. There were 11 arousals due to isolated limb movements for an index of 2.0. Periodic Limb Movements The patient had 20 isolated limb movements with an index of 3.6. The patient had 302 periodic limb movements with index of 54.8. Patient had a total of 322 limb movements with a total limb movement index of 58.5. Oximetry Data The patient had an average oxygen saturation of 91.9% in sleep with a minimum oxygen saturation of 87% and a maximum oxygen saturation of 95%. The patient had 9 oxygen desaturations that were 4% or greater resulting in an Oxygen Desaturation Index of 1.6. The patient spent 1.5 minutes, 0.3% of total sleep time with an oxygen saturation below 88%. Snoring Profile Snoring was not present during this titration. Cardiac Profile The EKG showed normal sinus rhythm. The patient had an average pulse rate of 60.3 bpm with a minimum pulse rate of 52 bpm and a maximum pulse rate of 74 bpm. No arrhythmias noted. EEG Profile EEG was unremarkable, no evidence of seizures. Assessment and Plan Assessment and Plan (1) DEE (obstructive sleep apnea): Code(s): G47.33 - Obstructive sleep apnea (adult) (pediatric) Status: Acute Assessment and Plan: This full night CPAP titration on 04/19/2024 shows a successful titration using a medium ResMed AirFit P30 I with heated humidity and an optimal pressure of CPAP 9 cm without supplemental O2. Patient had supine REM at this setting with residual apnea-hypopnea index of 1.0 with a minimum saturation of 89%, mean saturation of 92.5%. She did not use supplemental oxygen at all during the study. The patient should be prescribed this ResMed equipment as well as tubing, filters and reservoir. This should be used with all episodes of sleep. Compliance should be reviewed within 31-90 days of starting therapy for usage greater than 4 hours per night greater than 70% of the nights. The patient should be asked about symptoms such as excessive daytime sleepiness, quality of sleep, decreased nocturia, increased mental functioning such as memory, mood, and concentration. (2) Restless legs syndrome (RLS): Code(s): G25.81 - Restless legs syndrome Status: Acute Assessment and Plan: Patient has occasional problems with uncomfortable feelings in her legs at night. She had excessive limb movements during the study, a periodic limb movement index of 54.8 with constant limb movements during the entire study. These did not cause significant arousals. The periodic limb movement arousal index was 5.6. This is sufficient to make a diagnosis of restless legs syndrome. Ferritin level is indicated to exclude iron deficiency anemia as a contributing factor. Ferritin should be 75 ng/mL or greater. If ferritin is below this, iron supplementation should be given to achieve ferritin of 75 ng/mL. There are nonpharmacologic methods to treat limb movements including daily exercise, stretching calf muscles before bed, avoiding excessive amounts of caffeine and alcohol, vitamin B supplementation, magnesium lotion massaged into legs before bed, and use of a weighted blanket. Pharmacologic therapy is very effective for restless legs syndrome and limb movements during sleep and may include [id number] voltage-gated calcium channel ligands such as gabapentin which is preferable to dopaminergic agents which can have augmentation. Other treatments can include opioids and benzodiazepines. Data The data obtained during this sleep study is adequate for interpretation. Certification This sleep study has been reviewed by a board certified sleep medicine physician.
[2024-05-11 12:21] VITALS: BMI 31.1
== END 2024-04-20 06:27 | disposition home or self-care (01) ==
LOC: ANHCSM 07:52
PROVIDERS: PCP Family Medicine; Visit Provider Physician Assistant
DX: G47.33 Obstructive sleep apnea (adult) (pediatric) (principal); G25.81 Restless legs syndrome
CPT/HCPCS: 95811

== ENCOUNTER 2024-04-29 15:15 | Outpatient (RCR) | payer OTHER, SELFPAY ==
--- NOTE | 2024-04-23 15:28 | OPREHPOC ---
Outpatient Therapy Plan of Care This is a Multidisciplinary Plan of Care that may contain components documented by all disciplines (PT, OT, and ST.) PT Problem 1 PT Problem #1 Knowledge Deficit PT Goal 1 Goal / Goal Update *indep with HEP Target Visit 7 PT Problem 2 PT Problem #2 Pain PT Goal 1 Goal / Goal Update 1* decrease pain rating at worst to 5/10 2* self assessment Neck Index rating of 30% limitation in activity level 3* no radicular pain into L shoulder 4* pt report awakening from sleep 2x/night due pain Target Visit 7 PT Problem 3 PT Problem #3 Impaired Flexibility PT Goal 1 Goal / Goal Update increase cervical rotation to improve ability to drive and do self care tasks 1* rotation R 70' 2* rotation L 70' pt perform without pain increase, to improve mobility/activity skills 3* cervical rotation R 4* cervical rotation L 5* R shoulder flexion 6* L shoulder flexion Target Visit 7
--- NOTE | 2024-04-23 15:29 | PTOPEVAL1 ---
Assessment and note entered by Marlee Aquino, PT Evaluation Information Assessment Status Evaluation ICD-10 Condition Codes (PT) Cervicalgia M54.2 Onset about 1 year ago Subjective Information gradual increase in neck pain, no injury or trauma to neck; having more problems looking up and turning head; having problems with sleeping and getting neck comfortable, have a new pillow; xrays of cervical: DDD C 4-5, C5-6 and C 6-7; facet joint OA C 2-3, C 3-4, C 4-5; activity: retired; like to walk for fitness, but cannot walk very far due to neck hurting; at home with , who helps with mopping and vacuuming since she is not able to; Reported Pain Level Pain Score Self Report Additional Pain Score Comments pain range of the past week 4-10; sharp, stabbing, hurts; R < L neck and base of head; radicular into L shoulder intermittent have headaches 2x/wk, take tylenol and it eases increase pain: look up, turn head, lift, move arms decrease pain: heat, ice, muscle cream, over the counter meds, neck vibration pillow with sleeping awaken 3-4x/night due to pain; walking tolerance decreased due to neck pain- 10 minutes Assessment PT Clinical Summary Josefa has the diagnosis of cervicalgia. She reports increase in pain about 1 year ago, with radicular pain into L shoulder and headaches. Her history includes neck issues in the past. The recent x ray is positive for bony changes in cervical spine. Neck Disability index rating of 42% limitation in activity level. Her walking and sleeping tolerances are decreased and has to assist with heavier home tasks. With the evaluation: she has decreased cervical rotation to R/L and extension with pain increase- most with extension; also have neck pain with R and L shoulder motions; poor position of neck and shoulders; palpable spasms that are visible over both upper traps. Skilled PT services are indicated for modalities to decrease pain and spasms; therapeutic exercises to increase flexibility and strength over cervical-scapular area with education for HEP and posture, pain management. Plan of Care Interventions Electrical Stimulation,Hot Pack/Cold Pack,Manual Therapy,Neuro Re-education,Patient/Caregiver Educati,Therapeutic Activities,Therapeutic Exercise,Ultrasound,Other Other Interventions taping PT Services Indicated Yes Treatment Frequency and 1-2x/wk for 7 visits Duration These treatments will address the objective and functional deficits as defined above. The patient will be advanced safely and appropriately in order for the patient to progress towards his/her prior level of function. Additional exercises will be introduced and as well as a comprehensive home exercise program upon discharge, if needed, ?to ensure carryover of functional gains achieved in the clinic. This treatment plan has been reviewed and agreement upon by the patient.
--- NOTE | 2024-05-27 12:58 | PTOPDC ---
Assessment and note entered by Marlee Aquino, PT Assessment Status Discharge - Pt Not Present ICD-10 Condition Codes (PT) Cervicalgia M54.2 Onset about 1 year ago Subjective Information pt was not seen this date Assessment PT Clinical Summary Josefa has received 3 PT sessions, from April 23 to . She then stopped attending. Discharge PT due to pt not attending. The goals were not addressed. Plan of Care PT Services Indicated No
== END 2024-05-27 14:56 | disposition home or self-care (01) ==
LOC: ANHPT 15:15
PROVIDERS: PCP Family Medicine; Visit Provider Family Medicine
DX: M54.2 Cervicalgia (principal)
CPT/HCPCS: 97014; 97110; 97140; 97161; 97530; G0283

== ENCOUNTER 2024-05-10 08:00 | Outpatient (CLI) | payer OTHER, SELFPAY ==
--- NOTE | ~2024-05-10 | MM_ITS ---
EXAMINATION: MM screening jo ann BI w sandra HISTORY: Screening mammogram TECHNIQUE: Craniocaudal and mediolateral oblique 3-D tomosynthesis images were obtained and synthetic 2-D images were generated. CAD analysis was submitted and interpreted. COMPARISON: 05/10/2023, 05/04/2022 bilateral screening mammogram examinations BREAST PARENCHYMAL COMPOSITION: There are scattered areas of fibroglandular density. FINDINGS: There is no evidence of suspicious mass, calcification, or architectural distortion to sugg est malignancy in either breast. There has been no suspicious interval change. IMPRESSION: 1. No mammographic evidence of malignancy. 2. Recommend routine screening mammography in one year. BI-RADS Category 1: Negative Reviewed, dictated and finalized at location A. REST ASSEMBLER
== END 2024-05-10 08:01 | disposition home or self-care (01) ==
PROVIDERS: PCP Family Medicine; Visit Provider Nurse Practitioner
DX: Z12.31 Encounter for screening mammogram for malignant neoplasm of breast (principal)
CPT/HCPCS: 77063; 77067

== ENCOUNTER 2024-12-26 09:20 | Outpatient (CLI) | payer OTHER, SELFPAY ==
--- NOTE | ~2024-12-26 | DEXA_ITS ---
Bone Density Report Name: RICKY GASPAR Age: 74 Sex: Female Ethnicity: White Date of : 1950 Indication: postmenopausal; screening for osteoporosis; parental hip fracture; height loss; hysterectomy; Referring Provider: MICKYGHISLAINE Study: Bone densitometry was performed. Exam Date: December 26, 2024 Accession number: [id number] Bone Density: Region BMD T-score Z-score Classification AP Spine(L1-L4) 1.060 0.1 2.6 Normal Femoral Neck (Left) 0.895 0.4 2.6 Normal Total Hip (Left) 0.968 0.2 2.1 Normal Femoral Neck (Right) 0.857 0.1 2.2 Normal Total Hip (Right) 0.943 0.0 1.9 Normal Total Hip Mean 0.955 0.1 2.0 Normal World Health Organization criteria for BMD impression classify patients as: Normal (T-score at or above -1.0), Osteopenia (T-score between -1.0 and -2.5), or Osteoporosis (T-score at or below -2.5). 10-year Fracture Risk: FRAX not reported because: All T-scores for Spine Total, Hip Total, Femoral Neck at or above -1.0 Previous Exams: -- Region Exam Age BMD T-score BMD Change BMD Change Date g/cm2 vs Baseline vs Previous -- AP Spine (L1-L4) 12/26/2024 74 1.060 0.1 3.5%* 3.5%* 06/08/2022 71 1.025 -0.2 Total Hip(Left) 12/26/2024 74 0.968 0.2 0.7% 0.7% 06/08/2022 71 0.960 0.2 Total Hip(Right) 12/26/2024 74 0.943 0.0 0.6% 0.6% 06/08/2022 71 0.937 0.0 -- *Denotes significance at 95% confidence level, LSC for AP Spine = 0.022 g/cm2, LSC for Total Hip = 0.027 g/cm2 Clinical Information Provided by Patient: Parent has had a hip fracture Has used the following medications: HRT (i.e. estrogen/hormone therapy), Vitamin D, Calcium Has the following medical conditions: Hysterectomy Patient maximum height was 62 Menopause Age: 40 Does not regularly consume dairy products Drinks caffeinated beverages Onset of menses at age 12 Number of children 2 Impression: The patient has normal bone mass. The patient has risk factors, including: parental hip fracture. No significant bone loss was observed. Discussion: BONE DENSITY IS ABOVE THE MINIMUM DESIRABLE LEVEL AT ALL SKELETAL SITES TESTED. This patient?s bone mineral density is above the minimum desirable level (T-score -1.0 or better) at all sites measured. The patient should follow a healthful lifestyle (good nutrition with adequate calcium and vitamin D, and appropriate weight-bearing exercise). Follow-Up: Consider repeating this study in 5 years or sooner if there is some new clinical indication. Reported by: ANTHONY on 12/26/2024 9:50:00 AM. Reviewed, dictated and finalized at location A.
== END 2024-12-26 09:21 | disposition home or self-care (01) ==
LOC: MICIMG 09:21
PROVIDERS: PCP Family Medicine; Visit Provider Internal Medicine Rheumatology
DX: Z78.0 Asymptomatic menopausal state (principal)
CPT/HCPCS: 77080

== ENCOUNTER 2025-04-30 15:13 | Outpatient (CLI) | payer OTHER, SELFPAY ==
--- OUTSIDE RECORDS SUMMARY | 2025-04-30 11:45 | XMS_ITS | Encounter Summary ---
Author Organization [facility] Address [address] [place] [address] Care Team Providers Care Program Architect Name Role Phone Kathryn Thomas I. DO Unavailable [phone] Timothy Valenzuela MD Unavailable Kathryn Thomas I. DO Unavailable [phone] Sohail Charles MD Primary Care Provider [phone] Reason for Visit * Reason Comments Establish Care Encounter Details Date Type Department Care Team (Late st Contact Info) Description 04/30/2025 11:45 AM PHYSICIAN EXTENDER Office Visit [facility] Urology [address] [place] [address], [place] [address] Ashley Gonzalez, [address] [place] [address] DIV OF UROLOGIC [place] [address] Recurrent UTI Social History Tobacco Use Types Packs/Day Years Used Date Smoking Tobacco: Former Cigarettes 1 26 0 06/12/1964 - 06/12/1990 Smokeless Tobacco: Never Tobacco Cessation:Counseling Given: No Alcohol Use Standard Drinks/Week Comments Not Currently 0 (1 standard drink = 0.6 oz pur e alcohol) occ AUDIT-C Answer Date Recorded Q1: How often do you have a drink containing alcohol? Never 08/26/2024 Q2: How many drinks containi ng alcohol do you have on a typical day when you are drinking? Patient does not drink Q3: How often do you have si x or more drinks on one occasion? Never 08/26/2024 PHQ-2 Answer Date Recorded Patient Health Questionnaire-2 Score 0 07/29/2024 Hunger Vital Sign Answer Date Recorded Within the past 12 months, y ou worried that your food would run out before you got the money to buy more. Never true 01/20/20 22 Within the past 12 months, t he food you bought just didn't last and you didn't have money to get more. Never true 01/19/2022 Comments No Sex and Gender Information Value Date Recorded Sex Assigned at Not on file Legal Sex Female 5:29 PM PHYSICIAN EXTENDER Gender Identity Not on file Sexual Orientation Not on file documented as of this encounter Last Filed Vital Signs Vital Sign Reading Time Taken Comments Blood Pressure 167/77 04/30/2025 11:52 AM PHYSICIAN EXTENDER Pulse 74 04/30/2025 11:52 AM PHYSICIAN EXTENDER Temperature 36.6 C (97.9 F) 04/30/2025 11:50 AM PHYSICIAN EXTENDER Respiratory Rate - - Oxygen Saturation 98% 04/30/2025 11:52 AM PHYSICIAN EXTENDER Inhaled Oxygen Concentration - - Weight 76.2 kg (168 lb) 04/30/2025 11:50 AM PHYSICIAN EXTENDER Height 152.4 cm (5') 04/30/2025 11:50 AM PHYSICIAN EXTENDER Body Mass Index 32.81 04/30/2025 11:50 AM PHYSICIAN EXTENDER documented in this encounter Functional Status * Is person deaf or have serious hearing difficulty? Answer Date of Assessment Author No 01/20/2022 1:33 PM Meghan Garay RN * Is person blind or have serious difficulty seeing? Answer Date of Assessment Author No 01/20/2022 1:33 PM Meghan Garay RN * Does person have serious difficulty walking/climbing stairs? Answer Date of Assessment Author No 01/20/2022 1:33 PM Meghan Garay RN * Does person have difficulty dressing/bathing? Answer Date of Assessment Author No 01/20/2022 1:33 PM Meghna Garay RN * Does person have difficulty doing errands alone? Answer Date of Assessment Author No 01/20/2022 1:33 PM JOHNT Meghan Ramirez RN documented as of this encounter Mental Status * Does person have difficulty concentrating/remembering/making decisions? Answer Entry Date Author No 01/20/2022 1:33 PM CDT Meghan Ramirez RN documented in this encounter Plan of Treatment Upcoming Encounters Date Type Department Care Team (Late st Contact Info) Description 06/26/2025 11:00 AM PHYSICIAN EXTENDER Appointment [facility] ECHO [address] [place] [address] Marco Mccloud MD [address] [place] [address] 2L DIV OF PULMONARY/[place] [address] 06/26/2025 12:30 PM PHYSICIAN EXTENDER Appointment [facility] PFT [address] [place] [address] Marco Mccloud MD [address] [place] [address] 2L DIV OF PULMONARY/[place] [address] 08/25/2025 11:00 AM CDT Office Visit [facility] - Rheumatology [address] [place] [phone] Timothy Valenzuela MD [address] [place] [phone] 10/21/2025 11:00 AM CDT Office Visit [facility] - Pulmonology [address] [place] [phone] Marco Mccloud MD [address] [place] [address] 2L DIV OF PULMONARY/[place] [phone] Pending Results Name Type Priority Associated Diagnoses Date /Time CULTURE URINE Microbiology Routine Recurrent UTI 04/30/2025 12:38 PM PHYSICIAN EXTENDER documented as of this encounter Visit Diagnoses Diagnosis Recurrent UTI Urinary tract infection, site not specified documented in this encounter Additional Health Concerns Infection Onset Date Last Indicated Resolved Time ESBL Hx 05/30/2024 05/30/2024 documented as of this encounter Care Teams Program Architect Relationship Specialty Start Date End Date Sohail Charles MD [address] [place] [address] PCP - General Family Medicine 07/26/23 Kathryn Thomas DO [address] [place] [address] OF [facility] INTER[place] [address] Pulmonary Disease 09/28/22 Timothy Valenzuela MD [employer] [place] [phone] Central Communications Specialist Rheumatology 10/31/22 Kathryn Thomas DO [address] [place] [phone] Pulmonary Disease 10/31/22 documented as of this encounter
[2025-04-30 16:48] LABS: Influenza A QL RT-PCR Negative (Negative); Influenza B QL RT-PCR Negative (Negative); RSV RNA, RT-PCR Negative (Negative); SARS-CoV-2 RNA PCR Negative (Negative)
--- OUTSIDE RECORDS SUMMARY | 2025-04-30 23:28 | XMS_ITS | Encounter Summary ---
Author Organization [facility] Address [address] [place] [address] Care Team Providers Care Machine Adjuster Name Role Phone Sohail Charles MD Primary Care Provider [phone] Sohail Charles MD Primary Care Provider [phone] Kathryn Thomas I. DO Unavailable [phone] Yogesh RODRIGUES MD, Magdiel Knight Primary Care Provider [phone] Timothy Valenzuela MD Unavailable Kathryn Thomas I. DO Unavailable [phone] Sohail Charles MD Primary Care Provider [phone] Encounter Details Date Type Department Care Team (Late st Contact Info) Description 09/05/2021 Ophth Exam [facility] [address] [place] [address] Candice Oquendo MD [facility] [address] Social History Tobacco Use Types Packs/Day Years Used Date Smoking Tobacco: Former Cigarettes 1 26 0 06/12/1964 - 06/12/1990 Smokeless Tobacco: Never Alcohol Use Standard Drinks/Week Comments No 0 (1 standard drink = 0.6 oz pur e alcohol) AUDIT-C Answer Date Recorded Q1: How often do you have a drink containing alc ohol? Never 08/15/2021 Q2: How many drinks containi ng alcohol do you have on a typical day when you are drinking? 1 or 2 08/15/2021 Q3: How often do you have six or more drinks on one occasion? Never 08/15/2021 Hunger Vital Sign Answer Date Recorded Within the past 12 months, y ou worried that your food would run out before you got the money to buy more. Never true 08/17/19 22 Within the past 12 months, t he food you bought just didn't last and you didn't have money to get more. Never true 08/16/2021 Comments Unknown Sex and Gender Information Value Date Recorded Sex Assigned at Not on file Legal Sex Female 5:29 PM VERTICAL LATHE OPERATOR Gender Identity Not on file Sexual Orientation Not on file documented as of this encounter Functional Status * Is person deaf or have serious hearing difficulty? Answer Date of Assessment Author No 08/15/2021 10:45 PM Eloisa Lee RN * Is person blind or have serious difficulty seeing? Answer Date of Assessment Author No 08/15/2021 10:45 PM Eloisa Lee RN * Does person have serious difficulty walking/climbing stairs? Answer Date of Assessment Author No 08/15/2021 10:45 PM Eloisa Lee RN * Does person have difficulty dressing/bathing? Answer Date of Assessment Author No 08/15/2021 10:45 PM Eloisa Lee, KRANTHI * Does person have difficulty doing errands alone? Answer Date of Assessment Author No 08/15/2021 10:45 PM Eloisa Lee RN documented as of this encounter Mental Status * Does person have difficulty concentrating/remembering/making decisions? Answer Entry Date Author No 08/15/2021 10:45 PM Eloisa Lee RN documented in this encounter Plan of Treatment Upcoming Encounters Date Type Department Care Team (Late st Contact Info) Description 06/26/2025 11:00 AM VERTICAL LATHE OPERATOR Appointment [facility] ECHO [address] [place] [address] Marco Mccloud MD [address] DIV OF PULMONARY/[place] [address] 06/26/2025 12:30 PM VERTICAL LATHE OPERATOR Appointment [facility] [address] [place] [phone] Marco Mccloud MD [address] [place] [address] 2L DIV OF PULMONARY/[place] [address] 08/25/2025 11:00 AM CDT Office Visit [facility] - Rheumatology [address] [place] [phone] Timothy Valenzuela MD [address] [place] [phone] 10/21/2025 11:00 AM CDT Office Visit [facility] - Pulmonology [address] [place] [phone] Marco Mccloud MD [address] [place] [address] 2L DIV OF PULMONARY/[place] [phone] documented as of this encounter Visit Diagnoses Not on filedocumented in this encounter Additional Health Concerns Infection Onset Date Last Indicated Resolved Time ESBL GNR 11/24/2021 11/24/2021 05/30/2024 12:5 5 PM VERTICAL LATHE OPERATOR ESBL Hx 05/30/2024 05/30/2024 documented as of this encounter Care Teams Machine Adjuster Relationship Specialty Start Date End Date Sohail Charles MD [address] [place] [address] PCP - General 08/24/15 01/18/22 Sohail Charles MD [address] [place] [address] PCP - General Family Medicine 01/19/22 10/30/22 Magdiel Zuñiga III, MD [address] 2L [place] [address] PCP - General Internal Medicine 10/31/22 07/25/23 Sohail Charles MD [address] [place] [address] PCP - General Family Medicine 07/26/23 Kathryn Thomas DO [address] [facility] DIV OF [facility] [place] [address] Pulmonary Disease 09/28/22 Timothy Valenzuela MD [address] [place] [phone] Van Driver Rheumatology 10/31/22 Kathryn Thomas DO [address] [place] [address] Pulmonary Disease 10/31/22 documented as of this encounter
--- OUTSIDE RECORDS SUMMARY | 2025-04-30 23:28 | XMS_ITS | Encounter Summary ---
Author Organization [facility] Address [address] [facility] [place] [address] Care Team Providers Care Professional Programmer Analyst Name Role Phone Sohail Charles MD Primary Care Provider [phone] Sohail Charles MD Primary Care Provider [phone] Kathryn Thomas I. DO Unavailable [phone] Yogesh RODRIGUES MD, Magdiel Knight Primary Care Provider [phone] Timothy Valenzuela MD Unavailable Kathryn Thomas I. DO Unavailable [phone] Sohail Charles MD Primary Care Provider [phone] Encounter Details Date Type Department Care Team (Late st Contact Info) Description 09/06/2021 Ophth Exam [facility] [address] [place] [phone] Nhan Gipson MD [address] [place] [address] [place] [address] Social History Tobacco Use Types Packs/Day Years [...] on file Legal Sex Female 5:29 PM TIRE MOLD TESTER Gender Identity Not on file Sexual Orientation [...] st Contact Info) Description 06/26/2025 11:00 AM TIRE MOLD TESTER Appointment [facility] ECHO [address] [place] [address] Marco Mccloud MD [address] DIV OF PULMONARY/[place] [phone] 06/26/2025 12:30 PM TIRE MOLD TESTER Appointment [facility] [address] [place] [phone] Marco Mccloud MD [address] [place] [address] 2L DIV OF PULMONARY/[place] [phone] 08/25/2025 11:00 AM CDT Office Visit [facility] - Rheumatology [address] [place] [phone] Timothy Valenzuela MD [address] [place] [phone] 10/21/2025 11:00 AM CDT Office Visit [facility] - Pulmonology [address] [place] [phone] Marco Mccloud MD [address] [place] [address] 2L DIV OF PULMONARY/[place] [phone] documented as of this encounter Visit Diagnoses Not on filedocumented in this encounter Additional Health Concerns Infection Onset Date Last Indicated Resolved Time ESBL GNR 11/24/2021 11/24/2021 05/30/2024 12:5 5 PM TIRE MOLD TESTER ESBL Hx 05/30/2024 05/30/2024 documented as of this encounter Care Teams Professional Programmer Analyst Relationship Specialty Start Date End Date Sohail Charles MD [address] [place] [address] PCP - General 08/24/15 01/18/22 Sohail Charles MD [address] [place] [address] PCP - General Family Medicine 01/19/22 10/30/22 Magdiel Zuñiga III, MD [address] 2[place] [address] PCP - General Internal Medicine 10/31/22 07/25/23 Sohail Charles MD [address] [place] [address] PCP - General Family Medicine 07/26/23 Kathryn Thomas DO [address] [facility] DIV OF [facility] [place] [address] Pulmonary Disease 09/28/22 Timothy Valenzuela MD [address] [place] [phone] Pallet Rectifier Rheumatology 10/31/22 Kathryn Thomas DO [address] [place] [phone] Pulmonary Disease 10/31/22 documented as of this encounter
--- OUTSIDE RECORDS SUMMARY | 2025-04-30 23:28 | XMS_ITS | Encounter Summary ---
Author Organization [facility] Address [address] [place] [address] Care Team Providers Care Rpg Programmer Analyst Name Role Phone Sohail Charles MD Primary Care Provider [phone] Sohail Charles MD Primary Care Provider [phone] Kathryn Thomas I. DO Unavailable [phone] Yogesh RODRIGUES MD, Magdiel Knight Primary Care Provider [phone] Timothy Valenzuela MD Unavailable Kathryn Thomas I. DO Unavailable [phone] Sohail Charles MD Primary Care Provider [phone] Encounter Details Date Type Department Care Team (Late st Contact Info) Description 01/17/2022 Telephone [facility]AND[facility] [address] [place] [address] Sundar Eddy MD [facility] [address] Social History Tobacco Use Types Packs/Day Years Used Date Smoking Tobacco: Former Cigarettes 1 26 0 06/12/1964 - 06/12/1990 Smokeless Tobacco: Never Alcohol Use Standard Drinks/Week Comments No 0 (1 standard drink = 0.6 oz pur e alcohol) AUDIT-C Answer Date Recorded Q1: How often do you have a drink containing alcohol? Never 01/18/2022 Q2: How many drinks containi ng alcohol do you have on a typical day when you are drinking? Patient does not drink Q3: How often do you have si x or more drinks on one occasion? Never 01/18/2022 Hunger Vital Sign Answer Date Recorded Within the past 12 months, y ou worried that your food would run out before you got the money to buy more. Never true 01/20/20 22 Within the past 12 months, t he food you bought just didn't last and you didn't have money to get more. Never true 01/19/2022 Comments Unknown Sex and Gender Information Value Date Recorded Sex Assigned at Not on file Legal Sex Female 5:29 PM CONE EXAMINER Gender Identity Not on file Sexual Orientation Not on file documented as of this encounter Functional Status * Functional and Cognitive Status Question Answer Date of Assessment Author Is person deaf or have zeenat us hearing difficulty? No 01/20/2022 1:33 PM Meghan Garay RN Is person blind or have seri ous difficulty seeing? No 01/20/2022 1:33 PM Meghan Garay RN Does person have serious dif ficulty walking/climbing stairs? No 01/20/2022 1:33 PM Shavon Garay RN Does person have difficulty dressing/bathing? No 01/20/2022 1:33 PM Meghan Garay RN Does person have difficulty doing errands alone? No 01/20/2022 1:33 PM Meghan Garay RN Does person have difficulty concentrating/remembering/making decisions? No 01/20/2022 1:33 PM Meghan Garay RN * Question Answer Date of Assessment Author Q1: How often do you have a drink containing alcohol? Never 01/18/2022 10:47 PM Laura Vallejo RN Q2: How many drinks containing alcohol do you have on a typical day when you are drinking? Patient does not drink 01/18/2022 10:47 PM Laura Vallejo RN Q3: How often do you have six or more drinks on one occasion? Never 01/18/2022 10:47 PM JOHNT Laura Domingo RN * AUDIT-C Score Answer Date of Assessment Author 0 01/18/2022 10:47 PM OJHNT Simon Domingo RN * Is person deaf or have serious hearing difficulty? Answer Date of Assessment Author No 11/22/2021 5:43 PM JOHNT Lea Kingsley RN * Is person blind or have serious difficulty seeing? Answer Date of Assessment Author No 11/22/2021 5:43 PM CDT Lea Kingsley RN * Does person have serious difficulty walking/climbing stairs? Answer Date of Assessment Author No 11/22/2021 5:43 PM JOHNT Lea Kingsley RN * Does person have difficulty dressing/bathing? Answer Date of Assessment Author No 11/22/2021 5:43 PM JOHNT Lea [place]ley RN * Does person have difficulty doing errands alone? Answer Date of Assessment Author No 11/22/2021 5:43 PM Lea Jones RN documented as of this encounter Mental Status * Does person have difficulty concentrating/remembering/making decisions? Answer Entry Date Author No 11/22/2021 5:43 PM Lea Jones RN documented in this encounter Plan of Treatment Upcoming Encounters Date Type Department Care Team (Late st Contact Info) Description 06/26/2025 11:00 AM CONE EXAMINER Appointment [facility] ECHO [address] [place] [address] Marco Mccloud MD [address] [place] [address] 2L DIV OF PULMONARY/[place] [address] 06/26/2025 12:30 PM CONE EXAMINER Appointment [facility] PFT [address] [place] [address] Marco Mccloud MD [address] [place] [address] 2L DIV OF PULMONARY/[place] [address] 08/25/2025 11:00 AM CDT Office Visit [facility] - Rheumatology [address] [place] [address], [place] [phone] Timothy Valenzuela MD [address] [place] [phone] 10/21/2025 11:00 AM CDT Office Visit [facility] - Pulmonology [address] [place] [address], [place] [address] Marco Mccloud MD [address] [place] [address] 2L DIV OF PULMONARY/[place] [address] documented as of this encounter Visit Diagnoses Not on filedocumented in this encounter Additional Health Concerns Infection Onset Date Last Indicated Resolved Time ESBL GNR 11/24/2021 11/24/2021 05/30/2024 12:5 5 PM CONE EXAMINER ESBL Hx 05/30/2024 05/30/2024 documented as of this encounter Care Teams Rpg Programmer Analyst Relationship Specialty Start Date End Date Sohail Charles MD [address] [place] [address] PCP - General 08/24/15 01/18/22 Sohail Charles MD [address] [place] [address] PCP - General Family Medicine 01/19/22 10/30/22 Magdiel Zuñiga III, MD [address] [place] [address] 2L [place] [phone] PCP - General Internal Medicine 10/31/22 07/25/23 Sohail Charles MD [address] [place] [address] PCP - General Family Medicine 07/26/23 Kathryn Thomas DO [address] [place] [address] 2L DIV OF [facility] [place] [address] Pulmonary Disease 09/28/22 Timothy Valenzuela MD [address] [place] [phone] Material Attendant Rheumatology 10/31/22 Kathryn Thomas DO [facility] [place] [address] Pulmonary Disease 10/31/22 documented as of this encounter
--- OUTSIDE RECORDS SUMMARY | 2025-04-30 23:28 | XMS_ITS | Encounter Summary ---
Author Organization [facility] Address [address] [place] [address] Care Team Providers Care Color Corrector Name Role Phone Kathryn Thomas I. DO Unavailable [phone] Yogesh RODRIGUES MD, Magdiel Knight Primary Care Provider [phone] Timothy Valenzuela MD Unavailable Kathryn Thomas I. DO Unavailable [phone] Sohail Charles MD Primary Care Provider [phone] Encounter Details Date Type Department Care Team (Late st Contact Info) Description 06/20/2023 Telephone [facility] - Pulmonology [address] [place] [address], [place] [phone] Kathryn Thomas I., DO [address] [place] [address] OF [facility] [place] [address] Social History Tobacco Use Types Packs/Day Years [...] more drinks on one occasion? Never 01/18/2022 PHQ-2 Answer Date Recorded PHQ2 TOTAL SCORE 0 10/25/2022 Hunger Vital Sign Answer Date Recorded Within [...] on file Legal Sex Female 5:29 PM APPAREL DESIGNER Gender Identity Not on file Sexual Orientation [...] No 01/20/2022 1:33 PM Meghan Garay RN documented as of this encounter Mental Status * Does person have difficulty concentrating/remembering/making decisions? Answer Entry Date Author No 01/20/2022 1:33 PM Meghan Garay RN documented in this encounter Miscellaneous Notes * Telephone Encounter - Josefa Echavarria - 06/20/2023 9:51 AM CST Current Provider name: Dr. Kathryn Thomas Reason for call: Mrs. Josefa Curry's insurance has changed. The new insurance company [employer] needsauthorization for her to qualify for the oxygen use that she requires 24 x 7 in order for them to cover it. [employer] who will now do her OXYGEN requires She has [employer] Ins [employer] PPO , Please call them at Member Customer Service # is [phone] to provide what they need. Insurance was effect 06/13/2023. Patient Call Back number: [phone] REL DESIGNER documented in this encounter Plan of Treatment Upcoming Encounters Date Type Department Care Team (Late st Contact Info) Description 06/26/2025 11:00 AM APPAREL DESIGNER Appointment [facility] ECHO [address] [place] [address] Marco Mccloud MD [address] [place] [address] 2L DIV OF PULMONARY/[place] [phone] 06/26/2025 12:30 PM APPAREL DESIGNER Appointment [facility] PFT [address] [place] [address] Marco Mccloud MD [address] [place] [address] 2L DIV OF PULMONARY/[place] [address] 08/25/2025 11:00 AM CDT Office Visit [facility] - Rheumatology [address] [place] [phone] Timothy Valenzuela MD [address] [place] [phone] 10/21/2025 11:00 AM CDT Office Visit [facility] - Pulmonology [address] [place] [phone] Marco Mccloud MD [address] [place] [address] 2L DIV OF PULMONARY/[place] [address] documented as of this encounter Visit Diagnoses Not on filedocumented in this encounter Additional Health Concerns Infection Onset Date Last Indicated Resolved Time ESBL GNR 11/24/2021 11/24/2021 05/30/2024 12:5 5 PM APPAREL DESIGNER ESBL Hx 05/30/2024 05/30/2024 documented as of this encounter Care Teams Color Corrector Relationship Specialty Start Date End Date Magdiel Zuñiga III, MD [address] [facility] [address] 2[place] [address] PCP - General Internal Medicine 10/31/22 07/25/23 Sohail Charles MD [address] [place] [address] PCP - General Family Medicine 07/26/23 Kathryn Thomas DO [address] [facility] 2L DIV OF [facility] [place] [address] Pulmonary Disease 09/28/22 Timothy Valenzuela MD [address] [place] [phone] Mass Communications Instructor Rheumatology 10/31/22 Kathryn Thomas DO [address] [place] [address] Pulmonary Disease 10/31/22 documented as of this encounter
--- OUTSIDE RECORDS SUMMARY | 2025-04-30 23:28 | XMS_ITS | Encounter Summary ---
Author Organization [facility] Address [address] [place] [address] Care Team Providers Care Grain Merchandiser Name Role Phone Sohail Charles MD Primary Care Provider [phone] Sohail Charles MD Primary Care Provider [phone] Kathryn Thomas I. DO Unavailable [phone] Yogesh RODRIGUES MD, Magdiel Knight Primary Care Provider [phone] Timothy Valenzuela MD Unavailable Kathryn Thomas I. DO Unavailable [phone] Sohail Charles MD Primary Care Provider Encounter Details Date Type Department Care Team (Late st Contact Info) Description 09/30/2021 Telephone [facility] [address] [place] [address] Timothy Valenzuela MD [address] [place] [address] Social History Tobacco Use Types Packs/Day Years Used Date Smoking Tobacco: Former Cigarettes 1 26 0 06/12/1964 - 06/12/1990 Smokeless Tobacco: Never Alcohol Use Standard Drinks/Week Comments No 0 (1 standard drink = 0.6 oz pur e alcohol) AUDIT-C Answer Date Recorded Q1: How often do you have a drink containing alc ohol? Monthly or less 09/26/2021 Q2: How many drinks containi ng alcohol do you have on a typical day when you are drinking? 1 or 2 09/26/2021 Q3: How often do you have si x or more drinks on one occasion? Never 09/26/2021 Hunger Vital Sign Answer Date Recorded Within the past 12 months, y ou worried that your food would run out before you got the money to buy more. Never true 09/28/19 22 Within the past 12 months, t he food you bought just didn't last and you didn't have money to get more. Never true 09/27/2021 Comments Unknown Sex and Gender Information Value Date Recorded Sex Assigned at Not on file Legal Sex Female 5:29 PM CLOTHES MARKER Gender Identity Not on file Sexual Orientation Not on file documented as of this encounter Functional Status * Is person deaf or have serious hearing difficulty? Answer Date of Assessment Author No 09/27/2021 12:00 AM Heriberto Leo RN * Is person blind or have serious difficulty seeing? Answer Date of Assessment Author No 09/27/2021 12:00 AM Heriberto Leo RN * Does person have serious difficulty walking/climbing stairs? Answer Date of Assessment Author No 09/27/2021 12:00 AM Heriberto Leo RN * Does person have difficulty dressing/bathing? Answer Date of Assessment Author No 09/27/2021 12:00 AM Heriberto Leo RN * Does person have difficulty doing errands alone? Answer Date of Assessment Author No 09/27/2021 12:00 AM Heriberto Leo RN documented as of this encounter Mental Status * Does person have difficulty concentrating/remembering/making decisions? Answer Entry Date Author No 09/27/2021 12:00 AM Heriberto Leo RN documented in this encounter Plan of Treatment Upcoming Encounters Date Type Department Care Team (Late st Contact Info) Description 06/26/2025 11:00 AM CLOTHES MARKER Appointment [facility] ECHO [address] [place] [phone] Marco Mccloud MD [address] [place] [address] 2L DIV OF PULMONARY/[place] [phone] 06/26/2025 12:30 PM CLOTHES MARKER Appointment [facility] [address] [place] [phone] Marco Mccloud MD [address] [place] [address] 2L DIV OF PULMONARY/[place] [phone] 08/25/2025 11:00 AM CDT Office Visit [facility] - Rheumatology [address] [place] [phone] Timothy Valenzuela MD [address] [place] [phone] 10/21/2025 11:00 AM CDT Office Visit [facility] - Pulmonology [address] [place] [phone] Marco Mccloud MD [address] [place] [address] 2L DIV OF PULMONARY/[place] [phone] documented as of this encounter Visit Diagnoses Not on filedocumented in this encounter Additional Health Concerns Infection Onset Date Last Indicated Resolved Time ESBL GNR 11/24/2021 11/24/2021 05/30/2024 12:5 5 PM CLOTHES MARKER ESBL Hx 05/30/2024 05/30/2024 documented as of this encounter Care Teams Grain Merchandiser Relationship Specialty Start Date End Date Sohail Charles MD [address] [place] [address] PCP - General 08/24/15 01/18/22 Sohail Charles MD [address] [place] [address] PCP - General Family Medicine 01/19/22 10/30/22 Magdiel Zuñiga III, MD [address] [facility] 2[place] [phone] PCP - General Internal Medicine 10/31/22 07/25/23 Sohail Charles MD [address] [place] [address] PCP - General Family Medicine 07/26/23 Kathryn Thomas DO [facility] [facility] 2L DIV OF [facility] [place] [address] Pulmonary Disease 09/28/22 Timothy Valenzuela MD [address] [place] [phone] Nephrologist Rheumatology 10/31/22 Kathryn Thomas DO [address] [place] [phone] Pulmonary Disease 10/31/22 documented as of this encounter
--- OUTSIDE RECORDS SUMMARY | 2025-04-30 23:28 | XMS_ITS | Encounter Summary ---
Author Organization [facility] Address [address] [facility] [address] [place] [address] Care Team Providers Care Jewel Grinder Name Role Phone Sohail Charles MD Primary Care Provider Encounter Details Date Type Department Care Team (Late st Contact Info) Description 10/14/2016 Orders Only [facility] ProviderPaul MD [address] [place] [address] Social History Tobacco Use Types Packs/Day Years Used Date Smoking Tobacco: Never Assessed Comments Unknown Sex and Gender Information Value Date Recorded Sex Assigned at Not on file Legal Sex Female 11:59 AM CDT Gender Identity Not on file Sexual Orientation Not on file documented as of this encounter Functional Status documented as of this encounter Plan of Treatment Not on file documented as of this encounter Procedures Procedure Name Priority Date/Time Associated Diagnosis Comments CARDIOLOGY REPORT 10/14/2016 documented in this encounter Results * CARDIOLOGY REPORT (10/14/2016) Anatomical Region Laterality Modality Other Narrative 10/14/2016 Ordered by an unspecified provider. Historical Provider [facility] ALLEN Final Result documented in this encounter Visit Diagnoses Not on filedocumented in this encounter Care Teams Jewel Grinder Relationship Specialty Start Date End Date Sohail Charles MD [address] [place] [address] PCP - General 10/13/16 documented as of this encounter
--- OUTSIDE RECORDS SUMMARY | 2025-04-30 23:28 | XMS_ITS | Encounter Summary ---
Author Organization [facility] Address [address] [place] [address] Care Team Providers Care Silk Washing Machine Operator Name Role Phone Sohail Charles MD Primary Care Provider [phone] Sohail Charles MD Primary Care Provider [phone] Kathryn Thomas I. DO Unavailable [phone] Yogesh RODRIGUES MD, Magdiel Knight Primary Care Provider [phone] Timothy Valenzuela MD Unavailable Kathryn Thomas I. DO Unavailable [phone] Sohail Charles MD Primary Care Provider [phone] Encounter Details Date Type Department Care Team (Late st Contact Info) Description 10/29/2021 Telephone [facility] [address] [place] [address] Timothy Valenzuela MD [address] [place] [address] Social History Tobacco Use Types Packs/Day Years Used Date Smoking Tobacco: Former Cigarettes 1 26 0 06/12/1964 - 06/12/1990 Smokeless Tobacco: Never Alcohol Use Standard Drinks/Week Comments No 0 (1 standard drink = 0.6 oz pur e alcohol) AUDIT-C Answer Date Recorded Q1: How often do you have a drink containing alc ohol? Monthly or less 10/25/2021 Q2: How many drinks containi ng alcohol do you have on a typical day when you are drinking? 1 or 2 10/25/2021 Q3: How often do you have si x or more drinks on one occasion? Never 10/25/2021 Hunger Vital Sign Answer Date Recorded Within the past 12 months, y ou worried that your food would run out before you got the money to buy more. Never true 10/27/19 22 Within the past 12 months, t he food you bought just didn't last and you didn't have money to get more. Never true 10/26/2021 Comments Unknown Sex and Gender Information Value Date Recorded Sex Assigned at Not on file Legal Sex Female 5:29 PM FILLING AND PACKING SUPERVISOR Gender Identity Not on file Sexual Orientation Not on file documented as of this encounter Functional Status * Is person deaf or have serious hearing difficulty? Answer Date of Assessment Author No 10/27/2021 10:35 AM Karen Rocha RN * Is person blind or have serious difficulty seeing? Answer Date of Assessment Author No 10/27/2021 10:35 AM Karen Rocha RN * Does person have serious difficulty walking/climbing stairs? Answer Date of Assessment Author No 10/27/2021 10:35 AM Karen Rocha RN * Does person have difficulty dressing/bathing? Answer Date of Assessment Author No 10/27/2021 10:35 AM Karen Rocha RN * Does person have difficulty doing errands alone? Answer Date of Assessment Author No 10/27/2021 10:35 AM Karen Rocha RN documented as of this encounter Mental Status * Does person have difficulty concentrating/remembering/making decisions? Answer Entry Date Author No 10/27/2021 10:35 AM Karen Rocha RN documented in this encounter Plan of Treatment Upcoming Encounters Date Type Department Care Team (Late st Contact Info) Description 06/26/2025 11:00 AM FILLING AND PACKING SUPERVISOR Appointment [facility] ECHO [address] [place] [address] Marco Mccloud MD [address] [facility] 2L DIV OF PULMONARY/[place] [phone] 06/26/2025 12:30 PM FILLING AND PACKING SUPERVISOR Appointment [facility] [address] [place] [phone] Marco Mccloud MD [address] [facility] 2L DIV OF PULMONARY/[place] [phone] 08/25/2025 11:00 AM CDT Office Visit [facility] - Rheumatology [address] [place] [phone] Timothy Valenzuela MD [address] [place] [phone] 10/21/2025 11:00 AM CDT Office Visit [facility] - Pulmonology [address] [place] [phone] Marco Mccloud MD [address] [place] [address] 2L DIV OF PULMONARY/[place] [phone] documented as of this encounter Visit Diagnoses Not on filedocumented in this encounter Additional Health Concerns Infection Onset Date Last Indicated Resolved Time ESBL GNR 11/24/2021 11/24/2021 05/30/2024 12:5 5 PM FILLING AND PACKING SUPERVISOR ESBL Hx 05/30/2024 05/30/2024 documented as of this encounter Care Teams Silk Washing Machine Operator Relationship Specialty Start Date End Date Sohail Charles MD [address] [place] [address] PCP - General 08/24/15 01/18/22 Sohail Charles MD [address] [place] [address] PCP - General Family Medicine 01/19/22 10/30/22 Magdiel Zuñiga III, MD [address] [facility] 2L [place] [address] PCP - General Internal Medicine 10/31/22 07/25/23 Sohail Charles MD [address] [place] [address] PCP - General Family Medicine 07/26/23 Kathryn Thomas DO [address] [facility] 2L DIV OF [facility] [place] [address] Pulmonary Disease 09/28/22 Timothy Valenzuela MD [address] [place] [phone] Food Service Representative Rheumatology 10/31/22 Kathryn Thomas DO [address] [place] [phone] Pulmonary Disease 10/31/22 documented as of this encounter
--- OUTSIDE RECORDS SUMMARY | 2025-04-30 23:28 | XMS_ITS | Encounter Summary ---
Author Organization [facility] Address [address] [facility] [place] [address] Care Team Providers Care Hanging Flags Decorator Name Role Phone Kathryn Thomas I. DO Unavailable [phone] Timothy Valenzuela MD Unavailable Kathryn Thomas I. DO Unavailable [phone] Sohail Charles MD Primary Care Provider [phone] Encounter Details Date Type Department Care Team (Latest Contact Info) Description 04/30/2025 Travel Social History Tobacco Use Types Packs/Day Years Used Date Smoking Tobacco: Former Cigarettes 1 26 0 06/12/1964 - 06/12/1990 Smokeless Tobacco: Never Alcohol Use Standard Drinks/Week Comments Not Currently [...] on file Legal Sex Female 5:29 PM CONTROL SYSTEMS TECHNICIAN Gender Identity Not on file Sexual Orientation [...] Meghan Garay RN documented in this encounter Plan of Treatment Upcoming Encounters Date Type Department Care Team (Late st Contact Info) Description 06/26/2025 11:00 AM CONTROL SYSTEMS TECHNICIAN Appointment [facility] ECHO [address] [place] [address] Marco Mccloud MD [address] [facility] 2L DIV OF PULMONARY/[place] [phone] 06/26/2025 12:30 PM CONTROL SYSTEMS TECHNICIAN Appointment [facility] PFT [address] [place] [address] Marco Mccloud MD [address] [facility] 2L DIV OF PULMONARY/[place] [phone] 08/25/2025 11:00 AM CDT Office Visit [facility] - Rheumatology [address] [place] [phone] Timothy Valenzuela MD [address] [place] [phone] 10/21/2025 11:00 AM CDT Office Visit [facility] - Pulmonology [address] [place] [phone] Marco Mccloud MD [address] [place] [address] 2L DIV OF PULMONARY/[place] [phone] documented as of this encounter Visit Diagnoses Not on filedocumented in this encounter Additional Health Concerns Infection Onset Date Last Indicated Resolved Time ESBL Hx 05/30/2024 05/30/2024 documented as of this encounter Care Teams Hanging Flags Decorator Relationship Specialty Start Date End Date Sohail Charles MD [address] [place] [address] PCP - General Family Medicine 07/26/23 Kathryn Thomas DO [address] [place] [address] 2L DIV OF [place] [address] Pulmonary Disease 09/28/22 Timothy Valenzuela MD [address] [place] [phone] Lime Filter Operator Rheumatology 10/31/22 Kathryn Thomas DO [address] [place] [phone] Pulmonary Disease 10/31/22 documented as of this encounter
--- OUTSIDE RECORDS SUMMARY | 2025-04-30 23:28 | XMS_ITS | Encounter Summary ---
Author Organization [facility] Address [address] [place] [address] Care Team Providers Care Track Surfacing Machine Operator Name Role Phone Sohail Charles MD Primary Care Provider [phone] Kathryn Thomas I. DO Unavailable [phone] Yogesh RODRIGUES MD, Magdiel Knight Primary Care Provider [phone] Timothy Valenzuela MD Unavailable Kathryn Thomas I. DO Unavailable [phone] Sohail Charles MD Primary Care Provider [phone] Encounter Details Date Type Department Care Team (Late st Contact Info) Description 02/03/2022 Telephone [facility] [address] [place] [address] Kathryn Thomas I., DO [address] [place] [address] Social History Tobacco Use Types [...] on file Legal Sex Female 5:29 PM EXTERIOR INTERIOR SPECIALIST Gender Identity Not on file Sexual Orientation [...] encounter Miscellaneous Notes * Telephone Encounter - Lopez, Kimmie - 02/03/2022 10:19 AM CDT Current Provider name:Dr. Thomas Reason for call: Pt would like to go over her results and know what her next steps are. She wants to know how long she will be on oxygen. Patient Call Back number: [phone] documented in this encounter Plan of Treatment Upcoming Encounters Date Type Department Care Team (Late st Contact Info) Description 06/26/2025 11:00 AM EXTERIOR INTERIOR SPECIALIST Appointment [facility] ECHO [address] [place] [address] Marco Mccloud MD [address] [place] [address] 2L DIV OF PULMONARY/[place] [address] 06/26/2025 12:30 PM EXTERIOR INTERIOR SPECIALIST Appointment [facility] PFT [address] [place] [address] Marco Mccloud MD [address] [place] [address] 2L DIV OF PULMONARY/[place] [address] 08/25/2025 11:00 AM CDT Office Visit [facility] - Rheumatology [address] [place] [phone] Timothy Valenzuela MD [address] [place] [phone] 10/21/2025 11:00 AM CDT Office Visit [facility] - Pulmonology [address] [place] [phone] Marco Mccloud MD [address] [place] [address] 2L DIV OF PULMONARY/[place] [address] documented as of this encounter Visit Diagnoses Not on filedocumented in this encounter Additional Health Concerns Infection Onset Date Last Indicated Resolved Time ESBL GNR 11/24/2021 11/24/2021 05/30/2024 12:5 5 PM EXTERIOR INTERIOR SPECIALIST ESBL Hx 05/30/2024 05/30/2024 documented as of this encounter Care Teams Track Surfacing Machine Operator Relationship Specialty Start Date End Date Sohail Charles MD [address] [place] [address] PCP - General Family Medicine 01/19/22 10/30/22 Magdiel Zuñiga III, MD [address] [facility] 2[place] [address] PCP - General Internal Medicine 10/31/22 07/25/23 Sohail Charles MD [address] [place] [address] PCP - General Family Medicine 07/26/23 Kathryn Thomas DO [address] [facility] 2L DIV OF [facility] [place] [address] Pulmonary Disease 09/28/22 Timothy Valenzuela MD [address] [place] [phone] Senior Analyst Market Intelligence Rheumatology 10/31/22 Kathryn Thomas DO [address] [place] [phone] Pulmonary Disease 10/31/22 documented as of this encounter
--- OUTSIDE RECORDS SUMMARY | 2025-04-30 23:28 | XMS_ITS | Encounter Summary ---
Author Organization [facility] Address [address] [place] [address] Care Team Providers Care Scale Clerk Name Role Phone Kathrny Thomas I. DO Unavailable [phone] Timothy Valenzuela MD Unavailable Kathryn Thomas I. DO Unavailable [phone] Sohail Charles MD Primary Care Provider [phone] Reason for Visit * Reason Onset Date Comments Nurse Only 02/22/2024 Encounter Details Date Type Department Care Team (Late st Contact Info) Description 02/22/2024 Telephone [facility] - Centralized Scheduling [facility] [place] [address] Shahzad Easton MD [address] [address] Nurse Only Social History Tobacco Use Types Packs/Day Years [...] occasion? Never 01/18/2022 PHQ-2 Answer Date Recorded Patient Health Questionnaire-2 Score 0 11/23/2023 Hunger Vital Sign Answer Date Recorded Within [...] on file Legal Sex Female 5:29 PM MARKING ROOM SUPERVISOR Gender Identity Not on file Sexual Orientation Not on file documented as of this encounter Functional Status * Is person deaf or have serious hearing difficulty? Answer Date of Assessment Author No 01/20/2022 1:33 PM CDT Meghan Ramirez RN * Is person blind or have serious difficulty seeing? Answer Date of Assessment Author No 01/20/2022 1:33 PM CDT Meghan Ramirez RN * Does person have serious difficulty [...] encounter Miscellaneous Notes * Telephone Encounter - Royce Bravo PA - 02/22/2024 2:13 PM CDT Thanks for the message. I apologized to the patient that was an oversight on my part. I sent her Augmentin for the UTI. * Telephone Encounter - Bonilla Stacy RN - 02/22/2024 11:27 AM CDT Ms. Rivero believes she has another bladder infection. Really feels she never got over last infection or got any relief from symptoms. Recent Ur Cx +, given Bactrim. Ur cx resistant to Bactrim. For the last week, Has to cath every 2 hours r/t extra pressure around the urethra and vagina. ( Her normal is cathing 4x/ day.) Currently has vaginal irritation w/ Cathertization. C/o constant bladder pain. Denies fever, chills, blood in urine C/o Rt flank pain , but this is common if she catheterizes a lot. Leaving out of town next week. Concerned to travel w/ symptoms. ADVISED: please call urology w/ above information. I will send them a message as well. If no response by tomorrow, call us back. She agrees to plan. * Telephone Encounter - Linda Brooks - 02/22/2024 10:44 AM CDT Current Provider: Rustam Reason for Call: pt is calling concerned that she has a UTI, would like an appt also. Scheduled next available 04/08 Patient Call Back Number: [phone] documented in this encounter Plan of Treatment Upcoming Encounters Date Type Department Care Team (Late st Contact Info) Description 06/26/2025 11:00 AM MARKING ROOM SUPERVISOR Appointment [facility] ECHO [address] [place] [phone] Marco Mccloud MD [address] [place] [address] OF PULMONARY/[place] [phone] 06/26/2025 12:30 PM MARKING ROOM SUPERVISOR Appointment [facility] PFT [address] [place] [phone] Marco Mccloud MD [address] [place] [address] 2L DIV OF PULMONARY/[place] [phone] 08/25/2025 11:00 AM CDT Office Visit [facility] - Rheumatology [address] [place] [phone] Timothy Valenzuela MD [address] [place] [phone] 10/21/2025 11:00 AM CDT Office Visit [facility] - Pulmonology [address] [place] [phone] Marco Mccloud MD [address] [place] [address] 2L DIV OF PULMONARY/[place] [phone] documented as of this encounter Visit Diagnoses Not on filedocumented in this encounter Additional Health Concerns Infection Onset Date Last Indicated Resolved Time ESBL GNR 11/24/2021 11/24/2021 05/30/2024 12:5 5 PM MARKING ROOM SUPERVISOR ESBL Hx 05/30/2024 05/30/2024 documented as of this encounter Care Teams Scale Clerk Relationship Specialty Start Date End Date Sohail Charles MD [address] [facility] [address] [place] [address] PCP - General Family Medicine 07/26/23 Kathryn Thomas DO [address] [place] [address] 2L DIV OF GEN [place] [address] Pulmonary Disease 09/28/22 Timothy Valenzuela MD [address] [place] [phone] Brazer Induction Rheumatology 10/31/22 Kathryn Thomas DO [address] [place] [address] Pulmonary Disease 10/31/22 documented as of this encounter
--- OUTSIDE RECORDS SUMMARY | 2025-04-30 23:28 | XMS_ITS | Clinical Summary ---
Author Organization [facility] Address [address] [facility] [place] [address] Care Team Providers Care Telesales Specialist Name Role Phone Kathryn Thomas I. DO Unavailable [phone] Timothy Valenzuela MD Unavailable Kathryn Thomas I. DO Unavailable [phone] Sohail Charles MD Primary Care Provider [phone] Source Comments [facility],non-owned Affiliates and Associated Physician Practices is amultiple site organization consisting of ambulatory clinics and hospital sitesin [place], [place], [place] and [place]. This disclosure is being madepursuant to the Care Everywhere program and may not contain all information available regarding this patient. Last updated 18.[facility] [employer] Allergies Active Allergy Reactions Criticality Noted Date Comments Contrast-Iodinated Agents Fo r Ct/Other Shortness of Breath High 08/18/2021 Medications * Be aware that medications may not be up to date on this document. Alwaysverify current medications with the patient. atorvastatin (LIPITOR) 10 MG tablet Take 1 (one) tablet by mouth at bedtime Active aspirin (ASPIRIN) 81 MG chew tablet Take 1 (one) tablet by mouth once daily 30 tablet 2 09/23/19 22 Active pantoprazole EC (PROTONIX) 40 MG tablet Take 1 (one) tablet by mouth once daily 30 tablet 2 09/23/19 22 Active furosemide (Lasix) 20 MG tabletIndicati ons:Dyspnea,Ed kathleen Take 1 (one) tablet by mouth once daily as needed Reasons: Difficulty Breathing, Edema 30 tablet 2 01/21/20 22 026 Active Calcium Carbonate-Esthela min D (CALCIUM 600 +D HIGH POTENCY PO) Take 1 tablet by mouth once daily Active polyethylene glycol 3350 (MiraLax) 17 GM/SCOOP powder Take 17 (seventeen) g by mouth once daily Active Probiotic Product (FORTIFY PROBIOTIC WOMENS PO) Take 1 tablet by mouth once daily Active CRANBERRY PO Take 15,000 mg by mouth once daily Active levothyroxine (Synthroid) 25 MCG tablet Take 1 (one) tablet by mouth once daily 11/01/19 24 Active estradiol (Estrace) 0.1 MG/GM vaginal cream INSERT 0.5 GRAMS INTO THE VAGINA EVERY 2 DAYS 12/23/19 24 Active ascorbic acid (Vitamin C) 500 MG tablet Take 800 mg by mouth once daily Active albuterol HFA (ProAir HFA) 108 (90 Base) MCG/ACT inhaler Inhale 2 (two) puffs by mouth every 4 hours as needed 8.5 g 5 07/23/19 25 Active Additional Information Patient not taking.Reason: Other, Reported on 04/30/2025 azithromycin (Zithromax) 250 MG tablet Take 1 (one) tablet by mouth once daily Active solifenacin (Vesicare) 5 MG tablet Take 1 (one) tablet by mouth once daily for 60 days 30 tablet 1 5 11:37 AM CDT 08/28/19 25 Active amoxicillin-cl avulanate (Augmentin) 500-125 MG tablet Take 1 (one) tablet by mouth 2 times daily with morning and evening meal 14 tablet 10/16/19 25 Active ciprofloxacin (Cipro) 500 MG tablet Take 1 (one) tablet by mouth 2 times daily 14 tablet 11/16/19 25 Active nitrofurantoin monohyd macro crystals (Macrobid) 100 MG capsule Take 1 (one) capsule by mouth 2 times daily with morning and evening meal 10 capsule 11/22/19 25 Active methenamine hippurate (Hiprex) 1 GM tablet Take 1 (one) tablet by mouth 2 times daily 90 tablet 3 12/12/19 25 Active mycophenolate (Cellcept) 500 MG tabletIndicati ons:Interstiti al Lung Disease Take 1 (one) tablet by mouth 2 times daily Reasons: Disease of Tissues and Spaces Around Air Sacs in the Lungs 180 tablet 3 02/04/20 25 026 Active fluconazole (Diflucan) 150 MG tablet TAKE 1 TABLET BY MOUTH ONCE A ONE TIME DOSE 1 tablet 04/01/20 25 Active furosemide (Lasix) 20 MG tabletIndicati ons:Antisynthe tase syndrome (HCC),Intersti tial lung disease (HCC),PHT (pulmonary hypertension) (HCC) Take 1 (one) tablet by mouth once daily 90 tablet 4 04/22/20 25 Active fluconazole (Diflucan) 150 MG tablet Take 1 (one) tablet by mouth once for 1 dose 1 tablet 09/08/19 24 025 Discontinued Active Problems Problem Noted Date Diagnosed Date Diastolic dysfunction 04/22/2025 Assessment & Plan (04/22/2025 1:08 PM SPECIMEN PREPARATION ASSISTANT): Pulmonary hypertension per TTE, with most recent PASP elevated to 50 mmHg and increasing. Also with evidence of diastolic dysfunction; not currently on diuretic therapy and reports heavy fluid intake. 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 - Discussed with patient the option for pursuing RHC at this time vs conservative management with diuresis and repeat TTE. She elected for conservative approach at this time. 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 Currently on MMF 500 mg BID. Stable HRCT changes and stable TLC on PFTs. - Repeat PFTs, 6MWT in 3 months Orders: furosemide (Lasix) 20 MG tablet; Take 1 (one) tablet by mouth once daily Complete PFT; Future Six Minute Walk; Future ECHO TRANSTHORACIC; Future Dysphagia 08/29/2021 Myositis associated antibody positive 08/29/2021 Transaminitis 08/24/2021 Acute hypoxemic respiratory failure 08/21/2021 Anxiety 08/20/2021 Leukocytosis 08/19/2021 Hypophosphatemia 08/19/2021 DEE (obstructive sleep apnea) 08/18/2021 Hypothyroidism 08/18/2021 Hyperlipidemia 08/18/2021 Pulmonary embolism and infarction 08/18/2021 DVT, lower extremity, distal, acute, bilateral 0 08/18/2021 Multiple subsegmental pulmon tony emboli without acute cor pulmonale 08/18/2021 Interstitial lung disease 08/15/2021 Assessment & Plan (04/22/2025 1:08 PM SPECIMEN PREPARATION ASSISTANT): Pulmonary hypertension per TTE, with most recent PASP elevated to 50 mmHg and increasing. Also with evidence of diastolic dysfunction; not currently on diuretic therapy and reports heavy fluid intake. 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 - Discussed with patient the option for pursuing RHC at this time vs conservative management with diuresis and repeat TTE. She elected for conservative approach at this time. - Start lasix 20 mg daily - Encouraged fluid restriction Orders: furosemide (Lasix) 20 MG tablet; Take 1 (one) tablet by mouth once daily Complete PFT; Future Six Minute Walk; Future ECHO TRANSTHORACIC; Future SOB (shortness of breath) 08/15/2021 Hypoxia 08/15/2021 Multifocal pneumonia 08/15/2021 LVH (left ventricular hypertrophy) 04/15/2020 Elevated blood pressure read ing without diagnosis of hypertension 01/17/2020 Exertional chest pain 01/23/2017 Overview (09/02/2021): Last Assessment & Plan: Chest pain resolved. Exercise EKG negative for ischemia and she exercise for 9 minutes. Observe Postmenopausal atrophic vaginitis 09/03/2015 Retention of urine 09/03/2015 Resolved Problems Problem Noted Date Diagnosed Date Resolved Date Constipation 08/28/2021 09/25/2021 Encounters Date Type Department Care Team Description 04/30/2025 11:45 AM SPECIMEN PREPARATION ASSISTANT Office Visit [facility] - Urology [address] [place] [phone] Ashley Gonzalez, Recurrent UTI 04/30/2025 Travel 04/22/2025 10:30 AM SPECIMEN PREPARATION ASSISTANT Office Visit [facility] - Pulmonology [address] [place] [phone] Marco Mccloud MD PHT (pulmonary hypertension) (HCC) (Primary Dx); Interstitial lung disease (HCC); Diastolic dysfunction; Antisynthetase syndrome (HCC) 04/22/2025 Travel 03/31/2025 Refill [facility] - Urology [address] [place] [phone] Ashley Gonzalez, Refill Request 03/28/2025 Orders Only [facility] - Rheumatology [address] [place] [phone] Timothy Valenzuela MD Antisynthetase syndrome (HCC); Immunosuppression due to drug therapy (HCC); Therapeutic drug monitoring 03/24/2025 10:54 AM CDT - 03/24/2025 11:59 PM CDT Hospital Encounter [facility] CAT SCAN [address] [place] [address] Marco Mccloud MD Discharge Disposition: Home or Self Care 03/24/2025 9:53 AM CDT - 03/24/2025 10:53 AM CDT Hospital Encounter [facility] ECHO [address] [place] [address] Marco Mccloud MD Discharge Disposition: Home or Self Care 03/24/2025 Travel 02/03/2025 11:00 AM CDT Office Visit [facility] - Rheumatology [address], [place] [phone] Timothy Valenzuela MD Antisynthetase syndrome (HCC) (Primary Dx); Immunosuppression due to drug therapy (HCC); Therapeutic drug monitoring; Interstitial lung disease (HCC) 02/03/2025 Travel from Last 3 Months Immunizations Immunization Administration Dates Next Due Kiptronic primary monoval ent 12+ yr 0.3mL Purple cap 03/22/2021,08/13/2020,07/16/2020 INFLUENZA VACCINE, HIGH-DOSE , QUADR. (FLUZONE HIGH-DOSE QUADRIVALENT; 65Y+), 0.7 ML (HD-IIV4) 03/31/2022 PNEUMOCOCCAL PPSV23 04/17/2019 Pneumococcal Pcv13 Conj 04/16/2018 TDAP (7yrs+) 02/13/2019 Zoster Hzv Vacc Recombinant Inj Im 12/30/2022, Family History Medical History Relation Name Comments CAD (Coronary Artery Disease) Father Diabetes Father Elevated Lipids Father Heart Disease Father Heart Failure Father High Cholesterol Father Hypertension Father Cancer - Colon Mother Diabetes Mother Elevated Lipids Mother Heart Disease Mother High Cholesterol Mother Hypertension Mother Diabetes; unknown type Sister 1 Hypertension Sister 1 Elevated Lipids Sister 2 Relation Name Status Comments Father Mother Sister 1 Sister 2 Social History Tobacco Use Types Packs/Day Years [...] on file Legal Sex Female 5:29 PM SPECIMEN PREPARATION ASSISTANT Gender Identity Not on file Sexual Orientation Not on file Last Filed Vital Signs Vital Sign Reading Time Taken Comments Blood Pressure 167/77 04/30/2025 11:52 AM SPECIMEN PREPARATION ASSISTANT Pulse 74 04/30/2025 11:52 AM SPECIMEN PREPARATION ASSISTANT Temperature 36.6 C (97.9 F) 04/30/2025 11:50 AM SPECIMEN PREPARATION ASSISTANT Respiratory Rate 17 04/22/2025 10:07 AM SPECIMEN PREPARATION ASSISTANT Oxygen Saturation 98% 04/30/2025 11:52 AM SPECIMEN PREPARATION ASSISTANT Inhaled Oxygen Concentration 21% 09/28/2021 1 2:30 AM CDT Weight 76.2 kg (168 lb) 04/30/2025 11:50 AM SPECIMEN PREPARATION ASSISTANT Height 152.4 cm (5') 04/30/2025 11:50 AM SPECIMEN PREPARATION ASSISTANT Body Mass Index 32.81 04/30/2025 11:50 AM SPECIMEN PREPARATION ASSISTANT Plan of Treatment Upcoming Encounters Date Type Department Care Team (Late st Contact Info) Description 06/26/2025 11:00 AM SPECIMEN PREPARATION ASSISTANT Appointment [facility] ECHO [address] [place] [phone] Marco Mccloud MD [address] [place] [address] [address] OF PULMONARY[facility] [phone] 06/26/2025 12:30 PM SPECIMEN PREPARATION ASSISTANT Appointment [facility] PFT [address] [place] [phone] Marco Mccloud MD [address] [place] [address] [address] DIV OF PULMONARY/[place] [phone] 08/25/2025 11:00 AM CDT Office Visit [facility] - Rheumatology [address] [place] [address], [place] [phone] Timothy Valenzuela MD [address] [place] [phone] 10/21/2025 11:00 AM CDT Office Visit [facility] - Pulmonology [address], [place] [address] Marco Mccloud MD [address] [facility] [address] DIV OF PULMONARY/[place] [address] Health Maintenance Due Date Last Done Comments Respiratory Syncytial Virus (RSV) Vaccine Pt: or over 60 yrs (1 - 1-dose 75+ series) 2023 MEDICARE AWV 12 MONTHS 11/01/2023 10/31/2022 COVID-19 VACCINE ( season) 2025 03/22/2021, 08/13/2020, 07/16/2020 INFLUENZA VACCINE (#1) 2025 03/31/2022 DTAP/TDAP/TD VACCINES (2 - Td or Tdap) 02/13/2029 02/13/2019 PNEUMOCOCCAL VACCINE 50+ Completed 04/17/2019, 10/2017 HEPATITIS C SCREENING Completed 08/17/2021 BONE DENSITY TESTING Completed 02/15/2022 (Done Outside Per Patient) ZOSTER VACCINE Completed 12/30/2022, 10/31/2022 DEPRESSION SCREENING Completed 07/29/2024, 11/23/2023, 10/31/2022, Additional history exists HEPATITIS B VACCINE Aged Out No longe r eligible based on patient's age to complete this topic HIB VACCINE Aged Out No longer eligi ble based on patient's age to complete this topic HPV VACCINE Aged Out No longer eligi ble based on patient's age to complete this topic MENINGOCOCCAL (Group B) VACCINE SHARED DECISION-MAKING Aged Out No longer eligible based on patient's age to complete this topic MENINGOCOCCAL GROUPS A/C/Y/W VACCINE Aged Out No longer eligible based on patient's age to complete this topic Procedures Procedure Name Priority Date/Time Associated Diagnosis Comments COMPREHENSIVE METABOLIC PANEL Routine 03/25/2025 1:41 PM CDT 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) Therapeutic drug monitoring CBC W AUTO DIFFERENTIAL Routine 03/25/2025 1:41 PM CDT 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) Therapeutic drug monitoring CT CHEST WO CONT AND HIRES Routine 03/24/2025 11:04 AM CDT Interstitial lung disease (HCC) PHT (pulmonary hypertension) (HCC) Antisynthetase syndrome (HCC) ECHO COMPLETE Routine 03/24/2025 10:40 AM CDT Interstitial lung disease (HCC) PHT (pulmonary hypertension) (HCC) Antisynthetase syndrome (HCC) HEPATITIS C AB SCREEN RFLX NAAT QUANT AM Draw 08/17/2021 6:01 AM SPECIMEN PREPARATION ASSISTANT from Last 3 Months or Most Recently Relevant to Health Maintenance Results * CBC WITH DIFFERENTIAL (03/25/2025 1:41 PM CDT) WBC 7.8 3.4 - 10.8 x10E3/uL [facility] INSURANCE BILL RBC 4.58 3.77 - 5.28 x10E6/uL [facility] INSURANCE BILL Hemoglobin 13.3 11.1 - 15.9 g/dL [facility] INSURANCE BILL Hematocrit 41.1 34.0 - 46.6 % [facility] INSURANCE BILL MCV 90 79 - 97 fL [facility] INSURANCE BILL MCH 29.0 26.6 - 33.0 pg [facility] INSURANCE BILL MCHC 32.4 31.5 - 35.7 g/dL [facility] INSURANCE BILL RDW 12.8 11.7 - 15.4 % [facility] INSURANCE BILL Platelet Count 261 150 - 450 x10E3/uL [facility] INSURANCE BILL Granulocytes % 72 Not Estab. % [facility] INSURANCE BILL Lymphocytes % 21 Not Estab. % [facility] INSURANCE BILL Monocytes % 5 Not Estab. % [facility] INSURANCE BILL Eosinophils % 1 Not Estab. % [facility] INSURANCE BILL Basophils % 1 Not Estab. % [facility] INSURANCE BILL Granulocytes Absolute 5.5 1.4 - 7.0 x10E3/uL [facility] INSURANCE BILL Lymphocytes Absolute 1.7 0.7 - 3.1 x10E3/uL [facility] INSURANCE BILL Monocytes Absolute 0.4 0.1 - 0.9 x10E3/uL [facility] INSURANCE BILL Eosinophils Absolute 0.1 0.0 - 0.4 x10E3/uL [facility] INSURANCE BILL Basophils Absolute 0.0 0.0 - 0.2 x10E3/uL [facility] INSURANCE BILL Immature Granulocytes 0 Not Estab. % [facility] INSURANCE BILL Immature Granulocytes Absolute 0.0 0.0 - 0.1 x10E3/uL [facility] INSURANCE BILL Blood BLOOD SPECIMEN / Unknown 03/25/2025 1:41 PM CDT 03/25/2025 Narrative [facility] INSURANCE BILL - 03/26/2025 7:09 AM CDT Performed at: 01 - [facility] [id number] [place], [place] [id number] Fish Warden: Nathen Solares PhD, Phone: [phone] us Timothy Valenzuela MD LAB - HEMATOLOGY ORDERABLES Ann-Marie l Result [facility] INSURANCE BILL [address] [place] [address] * COMPREHENSIVE METABOLIC PANEL (03/25/2025 1:41 PM CDT) Glucose 83 70 - 99 mg/dL [facility] INSURANCE BILL BUN 12 8 - 27 mg/dL [facility] INSURANCE BILL Creatinine 0.70 0.57 - 1.00 mg/dL [facility] INSURANCE BILL eGFR by CKD-EPI 90 >59 mL/min/1.7 3 [facility] INSURANCE BILL BUN/Creatinine Ratio 17 12 - 28 [facility] INSURANCE BILL Sodium 139 134 - 144 mmol/L [facility] INSURANCE BILL Potassium 4.7 3.5 - 5.2 mmol/L [facility] INSURANCE BILL Chloride 100 96 - 106 mmol/L [facility] INSURANCE BILL CO2 25 20 - 29 mmol/L [facility] INSURANCE BILL Calcium 9.5 8.7 - 10.3 mg/dL [facility] INSURANCE BILL Protein Total 6.5 6.0 - 8.5 g/dL [facility] INSURANCE BILL Albumin 4.3 3.8 - 4.8 g/dL [facility] INSURANCE BILL Globulin Total 2.2 1.5 - 4.5 g/dL [facility] INSURANCE BILL Bilirubin Total 0.3 0.0 - 1.2 mg/dL [facility] INSURANCE BILL Alkaline Phosphatase 100 49 - 135 IU/L [facility] INSURANCE BILL AST 22 0 - 40 IU/L [facility] INSURANCE BILL ALT 16 0 - 32 IU/L [facility] INSURANCE BILL Blood BLOOD SPECIMEN / Unknown 03/25/2025 1:41 PM CDT 03/25/2025 Narrative [facility] INSURANCE BILL - 03/26/2025 9:11 AM CDT Performed at: 01 - [facility] [address] [place], [place] [id number] Fish Warden: Nathen Solares PhD, Phone: [phone] us Timothy Valenzuela MD LAB - CHEMISTRY ORDERABLES Final Result [facility] INSURANCE BILL [address] [place] [address] * CT Chest Wo Cont And Hires (03/24/2025 11:04 AM CDT) Anatomical Region Laterality Modality Chest Computed Tomogra phy 03/24/2025 1:15 PM CDT Impressions 03/24/2025 1:34 PM CDT Impression: Overall unchanged appearance of subpleural reticulations and traction bronchiectasis as well as mild ground glass opacities within both lungs > Dictated by Nicolle Cuevas MD > Dictated by Tailing Hand I, Dioni Rizzo MD have personally reviewed and interpreted this examination/study. > Interpreting Provider: Dioni Rizzo MD on 03/24/2025 1:34 PM Narrative 03/24/2025 1:34 PM CDT PROCEDURE: CT CHEST WO CONT AND HIRES, DATE/TIME OF EXAM: 03/24/2025 11:06 AM, LOCATION [facility] INDICATION: J84.9: Interstitial lung disease (HCC) I27.20: PHT (pulmonary hypertension) (HCC) D89.89: Antisynthetase syndrome (HCC) COMPARISON: Chest CT from 01/23/2024 TECHNIQUE: CT of the chest was performed without contrast according to standard protocol. Then, utilizing a high-resolution algorithm, 1 mm noncontiguous axial images of the chest were obtained in inspiration and expiration. Findings: Evaluation of visceral and vascular structures is degraded due to lack of intravenous contrast administration. Lower Neck and Axillae: Normal. Lungs: Unchanged diffuse emphysematous changes within both lungs. Redemonstrated subpleural reticulations with traction bronchiectasis and mild groundglass opacities. Lower lobe predominant air trapping is redemonstrated. No honeycombing is present. No pleural fluid or pneumothorax is present. Heart and Pericardium: The cardiac chambers are normal in size. No pericardial fluid or thickening is present. The coronary arteries are atherosclerotic. Mediastinum and Meghna: No enlarged lymph nodes are present. Thoracic Vasculature: The aorta and its branch vessels are atherosclerotic. Bones and Chest Wall: Bone windows demonstrate no suspicious lytic or blastic lesions. The visible osseous structures are intact. Degenerative changes are seen in the spine. Upper Abdomen: Gallbladder surgically absent. Unchanged hypodense lesion within the hepatic dome. Procedure Note Dioni Rizzo MD - 03/24/2025 PROCEDURE: CT CHEST CHRISTI GUERRA, DATE/TIME OF EXAM: 03/24/2025 11:06 AM, LOCATION [facility] INDICATION: J84.9: Interstitial lung disease (HCC) I27.20: PHT (pulmonary hypertension) (HCC) D89.89: Antisynthetase syndrome (HCC) COMPARISON: Chest CT from 01/23/2024 TECHNIQUE: CT of the chest was performed without contrast according to standard protocol. Then, utilizing a high-resolution algorithm, 1 mm noncontiguous axial images of the chest were obtained in inspiration and expiration. Findings: Evaluation of visceral and vascular structures is degraded due to lackof intravenous contrast administration. Lower Neck and Axillae: Normal. Lungs: Unchanged diffuse emphysematous changes within both lungs.Redemonstrated subpleural reticulations with traction bronchiectasis and mildgroundglass opacities. Lower lobe predominant air trapping is redemonstrated. No honeycombing is present. No pleural fluid or pneumothorax is present. Heart and Pericardium: The cardiac chambers are normal in size. No pericardial fluid orthickening is present. The coronary arteries are atherosclerotic. Mediastinum and Meghna: No enlarged lymph nodes are present. Thoracic Vasculature: The aorta and its branch vessels are atherosclerotic. Bones and Chest Wall: Bone windows demonstrate no suspicious lytic or blastic lesions. The visible osseous structures are intact. Degenerative changes are seen inthe spine. Upper Abdomen: Gallbladder surgically absent. Unchanged hypodense lesion within the hepatic dome. Impression: Overall unchanged appearance of subpleural reticulations and traction bronchiectasis as well as mild ground glass opacities within both lungs > Dictated by Nicolle Cuevas MD > Dictated by Tailing Hand IDioni MD have personally reviewed and interpreted this examination/study. > Interpreting Provider: Dioni Rizzo MD on 03/24/2025 1:34 PM Marco Mccloud MD CT ORDERABLES Final Result * ECHO COMPLETE (03/24/2025 10:40 AM CDT) IVSd 2D 0.985 cm SSM CV FUJ I PACS LVIDd 3.891 cm SSM CV FUJ I PACS LVIDs 2.399 cm SSM CV FUJ I PACS LVOT diam 2.033 cm SSM CV FUJ I PACS LVPWd 1.017 cm SSM CV FUJ I PACS LV biplane EF 75.88 % SSM CV FUJI PACS LV A2C EF 75.845 % SSM CV FUJ I PACS LV A4C EF 76.525 % SSM CV FUJ I PACS LV EDV A2C 105.264 ml SSM CV FU JI PACS LV EDV A4C 82.167 ml SSM CV FU JI PACS LV ESV A2C 25.427 ml SSM CV FU JI PACS LV ESV A4C 19.289 ml SSM CV FU JI PACS LVOT pk grad 5.716 mmHg SSM CV FUJI PACS LVOT pk tushar 119.985 cm/s SSM CV F UJI PACS LVOT VTI 23.755 cm SSM CV FUJ I PACS RV-spears basal diam 2.582 cm SSM CV FUJI PACS RVIDd 2.882 cm SSM CV FUJ I PACS RVOT diam Doppler 2.855 cm SS M CV FUJI PACS RVOT pk tushar 92.494 cm/s SSM CV F UJI PACS RVOT VTI 19.047 cm SSM CV FUJ I PACS LA size 3.93 cm SSM CV FUJ I PACS LA vol BP 55.969 ml SSM CV FUJ I PACS RA area 12.913 cm SSM CV FUJI PACS AV area pk tushar 2.892 cm SSM CV FUJI PACS AV area cont VTI 2.737 cm SSM CV FUJI PACS AV pk grad 6.344 mmHg SSM CV FU JI PACS AV mn grad 3.46 mmHg SSM CV FU JI PACS AV pk tushar 134.66 cm/s SSM CV FUJ I PACS AV VTI 28.172 cm SSM CV FUJ I PACS MV A pk tushar 136.21 cm/s SSM CV F UJI PACS MV E pk tushar 112.48 cm/s SSM CV F UJI PACS MV E' lateral tushar 9.234 cm/s SS M CV FUJI PACS PV pk tushar 78.167 cm/s SSM CV FUJ I PACS PV VTI 18.81 cm SSM CV FUJ I PACS TAPSE 1.96 cm SSM CV FUJ I PACS TR pk tushar 342.403 cm/s SSM CV FUJ I PACS Ascending aorta 3.086 cm SSM CV FUJI PACS IVC Diam Expiration 1.472 cm SSM CV FUJI PACS AV area index 1.5 cm /m SSM CV FUJI PACS LA vol index 0.031 l/m SSM CV FUJI PACS Dimensionless Index 0.843 unitless SSM CV FUJI PACS Myocardial strain charge 1 unitless SSM CV FUJI PACS Anatomical Region Laterality Modality Ultrasound 03/24/2025 10:1 1 AM CDT Narrative 03/24/2025 11:05 AM CDT Summary * The left ventricle is normal in size, with hyperdynamic systolic function and an estimated ejection fraction of 76 % by biplane method of disks. Left ventricular wall motion is normal. * The left ventricular mass is normal with concentric remodeling. * Right ventricle is normal in size with normal systolic function. * No hemodynamically significant valve disease. * The pulmonary artery systolic pressure is moderately elevated, 50 mmHg. Patient Info Name: Josefa uCrry Age: 74 years : 1950 Gender: Female Ht: 60 in Wt: 167 lb BSA: 1.82 m2 HR: 71 bpm BP: 118 / 64 mmHg Heart Rhythm: Sinus Rhythm Exam Date: 03/24/2025 10:11 AM Patient Status: O/P Study Site: [facility] Primary Location: [facility] Technical Quality: Adequate Exam Type: ECHO COMPLETE Indications J84.9 - Interstitial lung disease (HCC) D89.89 - Antisynthetase syndrome (HCC) I27.20 - PHT (pulmonary hypertension) (HCC) Procedure(s) * A complete 2D, color Doppler, spectral Doppler, and M-Mode transthoracic echocardiogram was performed. * Strain imaging performed per cardiology department protocol to evaluate and/or monitor myocardial function. Staff Referring Physician: Marco Mccloud Ordering Provider: Marco Mccloud Attending Physician: Marco Mccloud Instrument Installer: Mel Mark Left Ventricle The left ventricle is normal in size. Left ventricular systolic function is hyperdynamic with an estimated ejection fraction of 76 % by biplane method of disks. The left ventricular mass is normal with concentric remodeling. Left ventricular segmental wall motion is normal. The left ventricular diastolic function is consistent with grade II diastolic dysfunction. Right Ventricle The right ventricle is normal in size. Right ventricular systolic function is normal. Left Atrium The left atrium is normal in size with a left atrial volume index of 31 ml/m2 by BP MOD. Right Atrium The right atrium is normal in size. Atrial Septum Interatrial septum not well visualized by 2D and color Doppler imaging. Aortic Valve The aortic valve is trileaflet. There is no aortic valve stenosis. There is no aortic valve regurgitation. Pulmonic Valve The pulmonic valve is grossly normal. There is no pulmonic valve stenosis. There is no clinically significant pulmonic regurgitation. Mitral Valve The mitral valve is grossly normal. There is no mitral valve stenosis. There is no mitral valve regurgitation. Tricuspid Valve The tricuspid valve is grossly normal. There is trace tricuspid valve regurgitation. The pulmonary artery systolic pressure is moderately elevated, 50 mmHg. Inferior Vena Cava The inferior vena cava is normal in size (< 2.1 cm). Pericardium/Pleural There is no pericardial effusion. Aorta The aortic root at the sinus of Valsalva is normal in size. The ascending aorta is normal in size. Measurements Left Ventricular Outflow Tract Name Value Normal LVOT 2D LVOT Diameter 2.0 cm LVOT Area 3.2 cm2 LVOT Doppler LVOT Peak Velocity 1.2 m/s LVOT Peak Gradient 6 mmHg LVOT Mean Velocity 72.37 cm/s LVOT Mean Gradient 3 mmHg LVOT VTI 23.8 cm LVOT VTI/AV VTI Ratio 0.8 LVOT Stroke Volume 77 ml LVOT Stroke Volume Index 42 ml/m2 35-58 LVOT CO 5.5 l/min LVOT CI 3.0 l/min/m2 Pulmonic Valve Name Value Normal PV 2D RVOT Diameter (2D) 2.9 cm 1.7-2.7 RVOT Doppler RVOT Peak Velocity 0.9 m/s RVOT Peak Gradient 3 mmHg RVOT Mean Gradient 2 mmHg PV Doppler PV Peak Velocity 0.8 m/s PV Peak Gradient 2 mmHg PV Mean Gradient 1 mmHg PV Area (Cont Eq VTI) 6.48 cm2 PV Area Index (Cont Eq VTI) 3.55 cm2/m2 PV Area (Cont Eq Tushar) 7.6 cm2 PV Area Index (Cont Eq Tushar) 4.15 cm2/m2 Mitral Valve Name Value Normal MV Diastolic Function MV E Peak Velocity 1.1 m/sec MV A Peak Velocity 1.4 m/sec MV E/A 0.8 MV Decel Time (PW) 250 ms MV A Wave Duration 151 ms MV Annular TDI MV Septal e' Velocity 6 cm/s >=8 MV E/e' (Septal) 17 <=8 MV Lateral e' Velocity 9 cm/s >=10 MV E/e' (Lateral) 12 <=8 MV e' Average 8 cm/s MV E/e' (Average) 15 Tricuspid Valve Name Value Normal TV 2D TV Annulus Diameter (4C) 4.1 cm TV Regurgitation Doppler TR Peak Velocity 3.4 m/s TR Peak Gradient 47 mmHg Estimated PAP/RSVP PA Systolic Pressure 50 mmHg <35 TV Annular TDI TV Lateral Laurel s' Velocity 15 cm/s 10-19 Pulmonary Vessels Name Value Normal Pulmonary Veins Pulm Vein Peak Systolic Velocity 82.1 cm/s Pulm Vein Peak Diastolic Velocity 57.2 cm/s Pulm Vein S/D Velocity Ratio 1 Pulm Vein Ar Velocity 32.6 cm/s Pulm Vein Ar Dur - MV A Dur -14 ms Aorta Name Value Normal Ascending Aorta Asc Ao Diameter 3.1 cm 1.9-3.5 Asc Ao Diameter Index 1.7 cm/m2 1.0-2.2 Septae/Shunt/Generic Name Value Normal Qp/Qs Qp/Qs 1.6 Venous Name Value Normal IVC/SVC IVC Diameter 1.5 cm <=2.1 Aortic Valve Name Value Normal AV Doppler AV Peak Velocity 1.35 m/s AV Peak Gradient 6 mmHg AV Mean Gradient 3 mmHg AV VTI 28 cm AV Area (Cont Eq VTI) 2.74 cm2 >=2.00 AV Area (Cont Eq Tushar) 2.89 cm2 AV DI (VTI) 0.84 AV DI (Tushar) 0.89 AV Regurgitation 2D LVOT Area 3.24 cm2 Ventricles Name Value Normal LV Dimensions 2D/MM IVS Diastolic Thickness (2D) 1.0 cm 0.6-0.9 LVID Diastole (2D) 3.9 cm 3.8-5.2 LVPW Diastolic Thickness (2D) 1.0 cm 0.6-0.9 IVS Systolic Thickness (2D) 1.3 cm LVID Systole (2D) 2.4 cm 2.2-3.5 LVPW Systolic Thickness (2D) 1.3 cm LV Mass (2D Cubed) 101 g 67-162 LV Mass Index (2D Cubed) 56 g/m2 43-95 Relative Wall Thickness (2D) 0.52 <=0.42 LV Fractional Shortening/Ejection Fraction 2D/MM LV Fractional Shortening (2D) 38 % 27-45 LV EF (2D Teicholz) 69 % 54-74 LV Diastolic Volume (4C MOD) 82 ml LV EF (4C MOD) 77 % LV Diastolic Volume (2C MOD) 105 ml LV EF (2C MOD) 76 % LV Diastolic Volume (BP MOD) 93 ml 46-106 LV Diastolic Volume Index (BP MOD) 51 ml/m2 29-61 LV Systolic Volume (BP MOD) 22 ml 14-42 LV Systolic Volume Index (BP MOD) 12 ml/m2 8-24 LV EF (BP MOD) 76 % 54-74 LV Diastolic Length (4C) 7.0 cm LV Systolic Length (4C) 5.4 cm LV Stroke Volume (4C MOD) 63 ml RV Dimensions 2D/MM RVID Diastole (2D) 2.9 cm 2.5-3.5 RVID Systole (2D) 2.5 cm RV Basal Diastolic Dimension 2.6 cm 2.5-4.1 RV Diastolic Length (4C) 4.8 cm 5.9-8.3 TAPSE 2.0 cm >=1.7 Atria Name Value Normal LA Dimensions LA Dimension (2D) 3.9 cm 2.7-3.8 LA Dimen Index (2D) 2.2 cm/m2 LA Volume (BP MOD) 56 ml LA Volume Index (BP MOD) 31 ml/m2 16-34 RA Dimensions RA Area (4C) 13 cm2 <=18 RA Area (4C) Index 7 cm2/m2 EchoPAC Name Value Normal JORGE G peak SL(Avg) ([facility]) -23.1 % Report Signatures Finalized by Paco Peng on 03/24/2025 11:05 AM Procedure Note Paco Peng MD - 03/24/2025 Summary * The left ventricle is normal in size, with hyperdynamic systolicfunction and an estimated ejection fraction of 76 % by biplane method of disks.Left ventricular wall motion is normal. * The left ventricular mass is normal with concentric remodeling. * Right ventricle is normal in size with normal systolic function. * No hemodynamically significant valve disease. * The pulmonary artery systolic pressure is moderately elevated, 50mmHg. 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 * Strain imaging performed per cardiology department protocol toevaluate and/or monitor myocardial function. Staff Referring Physician: Marco Mccloud Ordering Provider: Marco Mccloud Attending Physician: Marco Mccloud Instrument Installer: Mel Mark Left Ventricle The left ventricle is normal in size. Left ventricular systolic functionis hyperdynamic with an estimated ejection fraction of 76 % by biplane methodof disks. The left ventricular mass is normal with concentric remodeling.Left ventricular segmental wall motion is normal. The left ventriculardiastolic function is consistent with grade II diastolic dysfunction. Right Ventricle The right ventricle is normal in size. Right ventricular systolicfunction is normal. Left Atrium The left atrium is normal in size with a left atrial volume index of31 ml/m2 by BP MOD. Right Atrium The right atrium is normal in size. Atrial Septum Interatrial septum not well visualized by 2D and color Dopplerimaging. Aortic Valve The aortic valve is trileaflet. There is no aortic valve stenosis. Thereis no aortic valve regurgitation. Pulmonic Valve The pulmonic valve is grossly normal. There is no pulmonic valvestenosis. There is no clinically significant pulmonic regurgitation. Mitral Valve The mitral valve is grossly normal. There is no mitral valve stenosis.There is no mitral valve regurgitation. Tricuspid Valve The tricuspid valve is grossly normal. There is trace tricuspid valve regurgitation. The pulmonary artery systolic pressure is moderatelyelevated, 50 mmHg. Inferior Vena Cava The inferior vena cava is normal in size (< 2.1 cm). Pericardium/Pleural There is no pericardial effusion. Aorta The aortic root at the sinus of Valsalva is normal in size. Theascending aorta is normal in size. Measurements Left Ventricular Outflow Tract Name Value Normal LVOT 2D LVOT Diameter 2.0 cm LVOT Area 3.2 cm2 LVOT Doppler LVOT Peak Velocity 1.2 m/s LVOT Peak Gradient 6 mmHg LVOT Mean Velocity 72.37 cm/s LVOT Mean Gradient 3 mmHg LVOT VTI 23.8 cm LVOT VTI/AV VTI Ratio 0.8 LVOT Stroke Volume 77 ml LVOT Stroke Volume Index 42 ml/m2 35-58 LVOT CO 5.5 l/min LVOT CI 3.0 l/min/m2 Pulmonic Valve Name Value Normal PV 2D RVOT Diameter (2D) 2.9 cm 1.7-2.7 RVOT Doppler RVOT Peak Velocity 0.9 m/s RVOT Peak Gradient 3 mmHg RVOT Mean Gradient 2 mmHg PV Doppler PV Peak Velocity 0.8 m/s PV Peak Gradient 2 mmHg PV Mean Gradient 1 mmHg PV Area (Cont Eq VTI) 6.48 cm2 PV Area Index (Cont Eq VTI) 3.55 cm2/m2 PV Area (Cont Eq Tushar) 7.6 cm2 PV Area Index (Cont Eq Tushar) 4.15 cm2/m2 Mitral Valve Name Value Normal MV Diastolic Function MV E Peak Velocity 1.1 m/sec MV A Peak Velocity 1.4 m/sec MV E/A 0.8 MV Decel Time (PW) 250 ms MV A Wave Duration 151 ms MV Annular TDI MV Septal e' Velocity 6 cm/s >=8 MV E/e' (Septal) 17 <=8 MV Lateral e' Velocity 9 cm/s >=10 MV E/e' (Lateral) 12 <=8 MV e' Average 8 cm/s MV E/e' (Average) 15 Tricuspid Valve Name Value Normal TV 2D TV Annulus Diameter (4C) 4.1 cm TV Regurgitation Doppler TR Peak Velocity 3.4 m/s TR Peak Gradient 47 mmHg Estimated PAP/RSVP PA Systolic Pressure 50 mmHg <35 TV Annular TDI TV Lateral Laurel s' Velocity 15 cm/s 10-19 Pulmonary Vessels Name Value Normal Pulmonary Veins Pulm Vein Peak Systolic Velocity 82.1 cm/s Pulm Vein Peak Diastolic Velocity 57.2 cm/s Pulm Vein S/D Velocity Ratio 1 Pulm Vein Ar Velocity 32.6 cm/s Pulm Vein Ar Dur - MV A Dur -14 ms Aorta Name Value Normal Ascending Aorta Asc Ao Diameter 3.1 cm 1.9-3.5 Asc Ao Diameter Index 1.7 cm/m2 1.0-2.2 Septae/Shunt/Generic Name Value Normal Qp/Qs Qp/Qs 1.6 Venous Name Value Normal IVC/SVC IVC Diameter 1.5 cm <=2.1 Aortic Valve Name Value Normal AV Doppler AV Peak Velocity 1.35 m/s AV Peak Gradient 6 mmHg AV Mean Gradient 3 mmHg AV VTI 28 cm AV Area (Cont Eq VTI) 2.74 cm2 >=2.00 AV Area (Cont Eq Tushar) 2.89 cm2 AV DI (VTI) 0.84 AV DI (Tushar) 0.89 AV Regurgitation 2D LVOT Area 3.24 cm2 Ventricles Name Value Normal LV Dimensions 2D/MM IVS Diastolic Thickness (2D) 1.0 cm 0.6-0.9 LVID Diastole (2D) 3.9 cm 3.8-5.2 LVPW Diastolic Thickness (2D) 1.0 cm 0.6-0.9 IVS Systolic Thickness (2D) 1.3 cm LVID Systole (2D) 2.4 cm 2.2-3.5 LVPW Systolic Thickness (2D) 1.3 cm LV Mass (2D Cubed) 101 g 67-162 LV Mass Index (2D Cubed) 56 g/m2 43-95 Relative Wall Thickness (2D) 0.52 <=0.42 LV Fractional Shortening/Ejection Fraction 2D/MM LV Fractional Shortening (2D) 38 % 27-45 LV EF (2D Teicholz) 69 % 54-74 LV Diastolic Volume (4C MOD) 82 ml LV EF (4C MOD) 77 % LV Diastolic Volume (2C MOD) 105 ml LV EF (2C MOD) 76 % LV Diastolic Volume (BP MOD) 93 ml 46-106 LV Diastolic Volume Index (BP MOD) 51 ml/m2 29-61 LV Systolic Volume (BP MOD) 22 ml 14-42 LV Systolic Volume Index (BP MOD) 12 ml/m2 8-24 LV EF (BP MOD) 76 % 54-74 LV Diastolic Length (4C) 7.0 cm LV Systolic Length (4C) 5.4 cm LV Stroke Volume (4C MOD) 63 ml RV Dimensions 2D/MM RVID Diastole (2D) 2.9 cm 2.5-3.5 RVID Systole (2D) 2.5 cm RV Basal Diastolic Dimension 2.6 cm 2.5-4.1 RV Diastolic Length (4C) 4.8 cm 5.9-8.3 TAPSE 2.0 cm >=1.7 Atria Name Value Normal LA Dimensions LA Dimension (2D) 3.9 cm 2.7-3.8 LA Dimen Index (2D) 2.2 cm/m2 LA Volume (BP MOD) 56 ml LA Volume Index (BP MOD) 31 ml/m2 16-34 RA Dimensions RA Area (4C) 13 cm2 <=18 RA Area (4C) Index 7 cm2/m2 EchoPAC Name Value Normal JORGE G peak SL(Avg) ([facility]) -23.1 % Report Signatures Finalized by Paco Peng on 03/24/2025 11:05 AM us Marco Mccloud MD ECHO CUPID Final Result * HEPATITIS C AB SCREEN RFLX NAAT QUANT (08/17/2021 6:01 AM SPECIMEN PREPARATION ASSISTANT) Hepatitis C Antibody Non-react brooke Non-reac tive 08/17/2021 7:00 AM SPECIMEN PREPARATION ASSISTANT [facility] Comment:Hepatitis C Antibody screen indicates no serologic evidence of past or current infection with Hepatitis C Virus. Patients with unexplained liver disease who are immunocompromised or suspected of having acute Hepatitis C infection may benefit from Nucleic Acid Test (JOHN) for Hepatitis C Viral RNA to confirm Hepatitis C status. Blood BLOOD SPECIMEN / Unknown Lab Venipuncture / Unknown 08/17/2021 6:01 AM SPECIMEN PREPARATION ASSISTANT 08/17/2021 6:06 AM SPECIMEN PREPARATION ASSISTANT us Magdiel Zuñiga III, MD LAB - CHEMISTRY ORDERABLE S Final Result [facility] [address] [place] [address], [facility] [phone] from Last 3 Months or Most Recently Relevant to Health Maintenance Additional Health Concerns Infection Onset Date Last Indicated ESBL Hx 05/30/2024 05/30/2024 Insurance [facility] MEDICARE ADV PPO Advance Directives Documents on File Type Date Recorded Patient Account Analyst Expl anation Adv Directive/Living Will/POA 09/23/2021 9:57 AM * Full Code (Latest Code Status on File) Date Activated Date Inactivated Comments 08/26/2024 11:38 AM 08/27/2024 2:25 PM * Full Code Date Activated Date Inactivated Comments 01/18/2022 10:54 PM 01/20/2022 5:04 PM * Full Code Date Activated Date Inactivated Comments 12/21/2021 6:51 PM 12/23/2021 7:44 PM * Full Code Date Activated Date Inactivated Comments 11/22/2021 5:42 PM 11/24/2021 3:49 PM * Full Code Date Activated Date Inactivated Comments 10/25/2021 4:48 PM 10/27/2021 1:44 PM Care Teams Telesales Specialist Relationship Specialty Start Date End Date Sohail Charles MD [address] [place] [address] PCP - General Family Medicine 07/26/23 Kathryn Thomas DO [address] [place] [address] [address] DIV [place] [address] Pulmonary Disease 09/28/22 Timothy Valenzuela MD [address] [place] [phone] Psychology Professor Rheumatology 10/31/22 Kathryn Thomas DO [facility] [place] [id number] Pulmonary Disease 10/31/22
--- OUTSIDE RECORDS SUMMARY | 2025-04-30 23:29 | XMS_ITS | Clinical Summary ---
Author Organization [facility] [address] Address [address] [place] [address] Care Team Providers Care Medical Dosimetrist Name Role Phone Sohail Charles MD Primary Care Provider Allergies Active Allergy Reactions Criticality Noted Date Comments Gadolinium-Containing Contra st Media Unknown 09/28/2023 Iodinated Contrast Media Shortness of breath High Medications atorvastatin (LIPITOR) 10 mg tablet take 1 tablet by oral route every day 0 0 7 Active levothyroxine sodium (TIROSINT) 25 mcg capsule take 1 capsule by oral route every day 0 0 7 Active polyethylene glycol (MIRALAX) 17 gram/dose powder take (17G) by oral route every day mixed with 8 oz. water, juice, soda, coffee or tea 0 0 7 Active cholecalciferol (VITAMIN D3) 1,000 unit capsule Take 1 capsule po qd 0 0 7 Active Additional Information Patient not taking.Reported on 10/01/2024 calcium carbonate-vitam in D3 (CALCIUM PETITES) 200 (500)-400 mg-unit capsule Take 1 tablet po qd 0 0 7 Active nitroglycerin (NITROSTAT) 0.4 mg SL tablet 0 Active furosemide (LASIX) 20 mg tablet Take 1 tablet (20 mg total) by mouth daily [address] (PROTONIX) 40 mg EC tablet Take 1 tablet (40 mg total) by mouth daily 2 Active mycophenolate mofetil (CELLCEPT) 500 mg tablet Take 1 tablet (500 mg total) by mouth 2 (two) times a day 2 Active aspirin 81 mg chewable tablet Take 1 tablet (81 mg total) by mouth daily Active cranberry 500 mg capsule Take 2 capsules by mouth daily Active methenamine (HIPREX) 1 gram tablet Take 1 tablet (1 g total) by mouth 2 (two) times a day with meals Active Active Problems Problem Noted Date Diagnosed Date HTN (hypertension), benign 11/02/2021 ILD (interstitial lung disease) 11/02/2021 DEE on CPAP 11/02/2021 Chronic respiratory failure with hypoxia 022 Chronic pulmonary embolism 11/02/2021 Chronic anticoagulation 11/02/2021 LVH (left ventricular hypertrophy) 04/15/2020 Diastolic dysfunction 04/15/2020 Elevated blood pressure read ing without diagnosis of hypertension 01/17/2020 Abnormal stress test 01/17/2020 Exertional chest pain 01/23/2017 Assessment & Plan (01/23/2017 10:34 AM CDT): Chest pain resolved. Exercise EKG negative for ischemia and she exercise for 9 minutes. Observe Palpitations 01/23/2017 Assessment & Plan (01/23/2017 10:35 AM CDT): Very rare palpitations. If they increase in frequency then we will consider a monitor. Observe for now and continue metoprolol Dyspnea on exertion 01/23/2017 Assessment & Plan (01/23/2017 10:35 AM CDT): Shortness of breath on exertion has improved. Echocardiogram shows normal systolic function and grade 2 diastolic dysfunction. Encourage patient to exercise regularly Mixed hyperlipidemia 01/23/2017 Assessment & Plan (01/23/2017 10:36 AM CDT): Her primary care doctor Dr. Charles has checked her lipids recently and she will follow up with Dr. Charles for that. Surgical History Surgery Date Site/Laterality Comments TOTAL ABDOMINAL HYSTERECTOMY Hysterectomy, total Medical History Medical History Date Comments Hyperlipidemia Hyperlipidemia Disease of thyroid gland Thyroid disease Hemorrhoid Hemorrhoids Family History Medical History Relation Name Comments Other Father 2 Heart Condition ; Cause of : Heart Condition Other Mother 2 Alive and well; Relation Name Status Comments Father 1 (Age 77) Father 2 Mother 1 Alive Mother 2 Social History Tobacco Use Types Packs/Day Years Used Date Smoking Tobacco: Former Cigarettes Q uit: 01/23/1993 Smokeless Tobacco: Never Alcohol Use Standard Drinks/Week Comments Yes 1 (1 standard drink = 0.6 oz pur e alcohol) monthly Comments Unknown Sex and Gender Information Value Date Recorded Sex Assigned at Not on file Legal Sex Female 11:59 AM CDT Gender Identity Not on file Sexual Orientation Not on file Last Filed Vital Signs Vital Sign Reading Time Taken Comments Blood Pressure 138/66 10/01/2024 8:37 AM CDT Pulse 74 10/01/2024 8:37 AM CDT Temperature 36.4 C (97.5 F) 01/17/2020 10:23 AM CDT Respiratory Rate 16 01/17/2020 10:23 AM CDT Oxygen Saturation 95% 10/01/2024 8:37 AM CDT Inhaled Oxygen Concentration - - Weight 77.1 kg (170 lb) 10/01/2024 8:37 AM CDT Height 157.5 cm (5' 2) 10/01/2024 8:37 AM CDT Body Mass Index 31.09 10/01/2024 8:37 AM CDT Plan of Treatment Health Maintenance Due Date Last Done Comments Depression Screening 1950 Fall Risk Assessment 1950 Hepatitis C Screening 1950 Osteoporosis Screening-Bone Density Scan 1950 Hepatitis B Screening 1966 Well Visit 65+ 2013 Covid-19 Vaccine ( season) 2025 03/22/2021, 08/13/2020, 07/16/2020 Influenza Vaccine (#1) 2025 03/31/2022 DTaP/Tdap/Td Vaccine (2 - Td or Tdap) 02/13/202909/2018 Pneumococcal vaccine 65+ Completed 04/17/2019, 10/2017 Zoster Vaccine Completed 12/30/2022, 10/31/2022 Insurance [employer] ADVANTAGE CHOICE PPO Care Teams Medical Dosimetrist Relationship Specialty Start Date End Date Sohail Charles MD [address] [place] [address] PCP - General 10/13/16
--- OUTSIDE RECORDS SUMMARY | 2025-04-30 23:29 | XMS_ITS | Data Portability ---
Author Organization [facility] [place] Address [address] [place] [address] [place] [address] Assessment No assessment recorded. Plan of Treatment Reminders Order Date Submit Date Provider Last Modified By Organization Details Last Modified Time Details Appointments None recorded. Lab urinalysi s, dipstick 2019 [email or web address] [facility] [address], [place], [address], 0 14:13:57 Referral None recorded. Procedures None recorded. Surgeries None recorded. Imaging None recorded. Medication Orders clotrimaz ole-betam ethasone 1 %-0.05 % topical cream 2019 INTERFACE [facility] [address] [facility], [place], [address], 0 13:07:39 Diflucan 150 mg tablet 2019 INTERFACE [facility] [address], [address] [facility], [place], [address], 0 13:07:38 Patient TargetsNo targets recorded. Patient InstructionsNo instructions recorded. Reason for Referral None Reported. Results Created Date Observation Date Name Description Value Unit Range Abnormal Flag Note LastModifiedBy Organization Detail LastModifiedTime 02/07/20 20 02/08/2020 bacte rial vagin osis + vagin itis panel , vagin al trichomonas vaginalis, aptima (panther) NOT DETECT ED normal Trich omona s vagin lisset: DNA testi ng perfo rmed by Trans cript ion Media silas Ampli ficat ion (TMA) These resul ts shoul d be inter prete d in light of all clini sarath and labor atory findi ngs. This assay is highl y accur ate, but rare false posit brooke and negat brooke resul ts may occur . Posit brooke resul ts in low preva lence popul ation s may requi re re-ev aluat ion. A negat brooke resul t does not precl ude a possi ble infec tion due to a speci men inade quacy or sampl ing error . Test perfo rmed by [facility], d/b/a [facility], [address], [place] [address] , Omid Gomes ra, DO, Labor atory Direc tor. Gardn erell a vagin lisset, Melly da speci es: Genom ic DNA is isola silas from patie nt speci mens by stand marcella labor atory techn iques and elenita zed using custo m OpenA rray plate s, perfo rmed on the Quant Studi o 12K Flex Real Time PCR syste m. A posit brooke resul t is provi ded for patho genic bacte erick, virus and/o r funga l speci es based on detec tion of ampli ficat ion produ cts. Mimi l vagin al rainer resul ts of Mimi l or Lockhart silas are deter mined by calcu latin g the ratio of the organ ism to the total bacte erick prese nt in the speci men, and miriam ring that ratio to a PathG roup patie nt popul ation . Overa ll resul ts of Mimi l, Borde rline and Abnor mal are deter mined using a proba bilit y model which was devel oped by an exten sive elenita sis and integ ratio n of clini sarath thres holds for marke r organ isms on a large set of sympt omati c & asymp tomat ic speci mens. Patie nt popul ation s with diffe rent demog raphi cs from the PathG roup model popul ation may have diffe rent indic ator organ isms with diffe rent relat brooke ratio s, which would influ ence the final resul ts. Resul ts shoul d be inter prete d in the jerome xt of all clini sarath and labor atory findi ngs. The test was devel oped and its perfo rmanc e mathew cteri stics deter mined by [employer] d/b/a [facility] rou. It has not been clear ed or appro rubio by the U.S. Food and Drug Admin istra tion. The FDA has deter mined that such clear ance or appro tamela is not neces aidan. Perti nent refer ence inter vals are avail able from the labor atory on reque st. Test( s) perfo rmed by [employer], d/b/a [facility], [address], [place] [address] , Omid Gomes ra, DO, Labor atory Dire tor. Not Available [facility] ([facility]) [address], [place], [address], 02/10/2020 19:14:08 02/07/20 20 02/10/2020 bacte rial vagin osis + vagin itis panel , vagin al heather sp. Not Detect ed normal Trich omona s vagin lisset: DNA testi ng perfo rmed by Trans cript ion Media silas Ampli ficat ion (TMA) These resul ts shoul d be inter prete d in light of all clini sarath and labor atory findi ngs. This assay is highl y accur ate, but rare false posit brooke and negat brooke resul ts may occur . Posit brooke resul ts in low preva lence popul ation s may requi re re-ev aluat ion. A negat brooke resul t does not precl ude a possi ble infec tion due to a speci men inade quacy or sampl ing error . Test perfo rmed by [employer], [employer], d/b/a [facility] roup, [address], [place] [address] , Omid Gomes ra, DO, Labor atory Direc tor. Dandre faulkner a dakotain lisset, Melly da speci es: Genom ic DNA is isola silas from patie nt speci mens by stand marcella labor atory techn iques and elenita zed using custo m OpenA rray plate s, perfo rmed on the Quant Studi o 12K Flex Real Time PCR syste m. A posit brooke resul t is provi ded for patho genic bacte erick, virus and/o r funga l speci es based on detec tion of ampli ficat ion produ cts. Mimi l vagin al rainer resul ts of Mimi l or Lockhart silas are deter mined by calcu latin g the ratio of the organ ism to the total bacte erick prese nt in the speci men, and miriam ring that ratio to a PathG roup patie nt popul ation . Overa ll resul ts of Mimi l, Borde rline and Abnor mal are deter mined using a proba bilit y model which was devel oped by an exten sive elenita sis and integ ratio n of clini sarath thres holds for marke r organ isms on a large set of sympt omati c & asymp tomat ic speci mens. Patie nt popul ation s with diffe rent demog raphi cs from the PathG roup model popul ation may have diffe rent indic ator organ isms with diffe rent relat brooke ratio s, which would influ ence the final resul ts. Resul ts shoul d be inter prete d in the jerome xt of all clini sarath and labor atory findi ngs. The test was devel oped and its perfo rmanc e mathew cteri stics deter mined by [facility] d/b/a [facility] roup. It has not been clear ed or appro rubio by the U.S. Food and Drug Admin istra tion. The FDA has deter mined that such clear ance or appro tamela is not neces aidan. Perti nent refer ence inter vals are avail able from the labor atory on reque st. Test( s) perfo rmed by [facility], [facility], d/b/a Audelia rou, [address], [place] [address] , Omid Gomes ra, DO, Labor atory Dire tor. Not Available [facility] ([facility]) [address], [place], [address], 02/10/2020 19:14:08 02/07/20 20 02/10/2020 bacte rial vagin osis + vagin itis panel , vagin al gardnerella vaginalis Detect ed abnormal Trich omona s vagin lisset: DNA testi ng perfo rmed by Trans cript ion Media silas Ampli ficat ion (TMA) These resul ts shoul d be inter prete d in light of all clini sarath and labor atory findi ngs. This assay is highl y accur ate, but rare false posit brooke and negat brooke resul ts may occur . Posit brooke resul ts in low preva lence popul ation s may requi re re-ev aluat ion. A negat brooke resul t does not precl ude a possi ble infec tion due to a speci men inade quacy or sampl ing error . Test perfo rmed by [facility] [employer], [employer], d/b/a Markie land, [address], [place] [address] , Omid Gomes ra, DO, Labor atory Direc tor. Gardn erell a vagin lisset, Melly da speci es: Genom ic DNA is isola silas from patie nt speci mens by stand marcella labor atory techn iques and elenita zed using custo m OpenA rray plate s, perfo rmed on the Quant Studi o 12K Flex Real Time PCR syste m. A posit brooke resul t is provi ded for patho genic bacte erick, virus and/o r funga l speci es based on detec tion of ampli ficat ion produ cts. Mimi l vagin al rainer resul ts of Mimi l or Lockhart silas are deter mined by calcu latin g the ratio of the organ ism to the total bacte erick prese nt in the speci men, and miriam ring that ratio to a PathG roup patie nt popul ation . Overa ll resul ts of Mimi l, Borde rline and Abnor mal are deter mined using a proba bilit y model which was devel oped by an exten sive elenita sis and integ ratio n of clini sarath thres holds for marke r organ isms on a large set of sympt omati c & asymp tomat ic speci mens. Patie nt popul ation s with diffe rent demog raphi cs from the Path[facility] roup model popul ation may have diffe rent indic ator organ isms with diffe rent relat brooke ratio s, which would influ ence the final resul ts. Resul ts shoul d be inter prete d in the jerome xt of all clini sarath and labor atory findi ngs. The test was devel oped and its perfo rmanc e mathew cteri stics deter mined by [employer] d/b/a [employer] It has not been clear ed or appro rubio by the U.S. Food and Drug Admin istra tion. The FDA has deter mined that such clear ance or appro tamela is not neces aidan. Perti nent refer ence inter vals are avail able from the labor atory on reque st. Test( s) perfo rmed by [employer], [employer]app[employer], d/b/a [facility] roup, [address] [place] [address] , Omid Gomes ra, DO, Labor atory Direc tor. Not Available [facility] ([facility]) [address], [place], [address], 02/10/2020 19:14:08 02/07/20 20 02/08/2020 cultu re, urine specimen source Urine - Void Not Available [facility] ([facility]) [address], [place], [address], 02/11/2020 13:56:21 02/07/20 20 02/08/2020 cultu re, urine culture, urine See Below See Micro biolo gy Repor t Not Available [facility] ([facility]) [address], [place], [address], 02/11/2020 13:56:21 02/07/20 20 02/08/2020 cultu re, urine escherichia coli esbl 50,000 -100,0 00 CFU/ml Escher ichia coli ESBL This isola te is a confi rmed ESBL (Exte nded Spect rum Beta- Lacta toro) produ cer and shoul d be consi dered clini xander resis tant to all penic illin s, cepha lospo rins and aztre onam. Not Available [facility] ([facility]) [facility], [place], [address], 02/11/2020 13:56:21 02/07/20 20 02/08/2020 cultu re, urine sensitivity panel See Below ___ Organ ism E.col i ESBL Antib iotic INTER P ___ Amika rangel S Amp/S ulbac aguirre R Ampic illin R Aztre onam R Cefaz jared R Cefep broderick R Cefox itin S Cefta zidim e R Ceftr iaxon e R Cefur oxime R Cipro floxa rangel R Ertap enem S Genta micin S Imipe nem S Levof loxac in R Merop enem S Nitro furan toin S Piper acill in/Ta zo S Tetra cycli ne R Tigec yclin e S Tobra mycin S Trime th/Hernandez lfa R __ S=VALENTINO CEPTI BLE I=INT ERMED IATE R=RES ISTAN T Not Available [facility] ([facility]) [address] [address] [facility] [address], [place], [address], 02/11/2020 13:56:21 02/07/20 20 02/07/2020 urina lysis , dipst ick Leukocytes ++ Not Available [facility] [address], [place], [address], 02/07/2020 13:03:47 02/07/20 20 02/07/2020 urina lysis , dipst ick Blood trace Not Available [facility] [address], [place], [address], 02/07/2020 13:03:47 Result Notes None recorded. 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 rce: EHR Chroni c: N Practice ID: 0001 Billa ble Time: 11:00:00 AM Not Available [facility] 0 18:39:20 Adult health examinati on Active 2011 Routine Medical Exam;Recor ded Elsewhere: No Locatio n: [facility] rce: EHR Chroni c: N Practice ID: [id number] Billa ble Time: 11:00:00 AM Not Available [facility] 0 18:39:20 Vaginitis and vulvovagi nitis Active 2011 Vaginitis; Recorded Elsewhere: No Locatio n: [facility] rce: EHR Chroni c: N Practice ID: 0001 Billa ble Time: 09:30:00 AM Not Available [facility] 0 18:39:20 Specializ ed medical examinati on Active 2012 Gynecologi sarath Examinatio n;Recorded Elsewhere: No Locatio n: [facility] rce: EHR Chroni c: N Practice ID: [id number] Billa ble Time: 01:00:00 PM Not Available [facility] 0 18:39:19 Backache [id number] Active 2014 Back pain;Recor ded Elsewhere: No Locatio n: [facility] rce: EHR Chroni c: N Practice ID: 0001 Billa ble Time: 08:15:00 AM Not Available [facility] 0 18:39:[address] Concept Active 2014 Encntr for general adult medical exam w/o abnormal findings;R ecorded Elsewhere: No Locatio n: [facility] rce: EHR Chroni c: N Practice ID: 0001 Billa ble Time: 08:15:00 AM Not Available [facility] 0 18:39:20 Pelvic and perineal pain 107793042 Active 2014 Pelvic and perineal pain;Recor ded Elsewhere: No Locatio n: [facility] rce: EHR Chroni c: N Practice ID: 0001 Billa ble Time: 09:30:00 AM Not Available [facility] 0 18:39:19 Urinary tract infectiou s disease 56288988 Active 2014 UTI;Record ed Elsewhere: No Locatio n: [facility] rce: EHR Chroni c: N Practice ID: 0001 Billa ble Time: 11:15:00 AM Not Available [facility] 0 18:39:19 Microscop ic hematuria 935192936 Active 2014 Other microscopi c hematuria; Recorded Elsewhere: No Locatio n: [facility] rce: EHR Chroni c: N Practice ID: 0001 Billa ble Time: 11:15:00 AM Not Available [facility] 0 18:39:21 Acute vaginitis 57659512 Active 2015 Acute vulvovagin itis;Recor ded Elsewhere: No Locatio n: [facility] rce: EHR Chroni c: N Practice ID: 0001 Billa ble Time: 03:00:00 PM Not Available [facility] 0 18:39:20 Dyspareun ia 29673134 Active 2015 Dyspareuni a;Recorded Elsewhere: No Locatio n: [facility] rce: EHR Chroni c: N Practice ID: 0001 Billa ble Time: 09:00:00 AM Not Available [facility] 0 18:39:21 Screening for malignant neoplasm of rectum Active 2015 Encounter for screening for malignant neoplasm of rectum;Rec orded Elsewhere: No Locatio n: [facility] rce: EHR Chroni c: N Practice ID: 0001 Billa ble Time: 10:30:00 AM Not Available [facility] 0 18:[facility]:[address] Concept Active 2017 Encntr for hooker on exam (general) (routine) w/o abn findings;R ecorded Elsewhere: No Locatio n: [facility] rce: EHR Chroni c: N Practice ID: 0001 Billa ble Time: 10:30:00 AM Not Available [facility] 0 18:39:19 Disorder of breast 30622699 Active 2018 Disorder of breast, unspecifie d;Recorded Elsewhere: No Locatio n: 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 Procedures Surgical History Date Name Laterality Status Provider Name and Address Organization Details Recorded Time Cholecystectomy completed [facility] 02/07/2020 13:49:16 Total Hysterectomy completed [facility] 02/07/2020 13:49:31 Tubal Ligation completed [facility] 02/07/2020 13:49:40 hemorrhoid operation completed [facility] 02/07/2020 13:50:34 Imaging Results None recorded. Procedure Notes None recorded. Medical Equipment None Reported. Allergies Allergen ID Allergen Name Allergen Category Reaction Reaction Severity Criticality Documentation Date Start Date Code Code System Note Provider Name and Address Organization Details Recorded Time 1861 Product containin g gadoliniu m and/or gadoliniu m compound (product) medicatio n Not available Not available Not available 02/07/2020 78181 3008 SNOMED [facility] 0 12:55:53 Medications Name Sig Start Date Stop Date Status Note LastModified by Organization Details LastModified Time Miralax 17 gram/dose oral powder take by oral route every day mixed with 8 oz. water, juice, soda, coffee or tea active Prescrib ed Elsewher e: Yes Loca tion: [facility] M odify By: annamaria tz Encou nter DateTime : 12/21/19 12 05:11:38 PM Not Available Not Available Not Available cephalexi n 250 mg capsule take 1 capsule by oral route every 6 hours active Not Available Not Available No t Available Keflex 500 mg capsule take 1 capsule by oral route every 8 hours 08/15 completed Prescrib ed Elsewher e: No Locat ion: [facility] odify By: annamaria tz Encou nter DateTime : 08/16/19 19 08:00:00 AM Not Available Not Available Not Available Diflucan 150 mg tablet Take 1 tablet every 72 hours by oral route. 2019 active Not Available Not Available Not Avai lable ciproflox acin 500 mg tablet take 1 tablet by oral route every 12 hours active Not Available Not Available No t Available sulfameth oxazole 800 mg-trimet hoprim 160 mg tablet take 1 tablet by oral route every 12 hours active Not Available Not Available No t Available omeprazol e 40 mg capsule,d elayed release active Not Available Not Available Not Available amoxicill in 500 mg tablet take 1 tablet by oral route 3 times every day 07/08 completed Prescrib ed Elsewher e: No Locat [facility]: [facility] odify By: amsabas giluntjomar DateTime : 06/01/20 15 10:51:22 AM Not Available Not Available Not Available Prevacid 15 mg capsule,d elayed release take 1 capsule by oral route every day before a meal 04/23 completed Prescrib ed Elsewher e: Yes Loca tion: [facility] odify By: bhavya giluntjoamr DateTime : 01/23/20 14 10:30:00 AM Not Available Not Available Not Available levothyro xine 25 mcg tablet active Not Available Not Available Not Available Nexium 20 mg capsule,d elayed release take 1 capsule by oral route every day 01/22 completed Prescrib ed Elsewher e: Yes Loca tion: [facility] odify By: mirian thompson DateTime : 04/05/20 12 09:30:00 AM Not Available Not Available Not Available Macrobid 100 mg capsule Take 1 capsule every 12 hours by oral route for 7 days. 2019 active Not Available Not Available Not Avai lable flaxseed oil 1,000 mg capsule 12/27 completed Prescrib ed Elsewher e: Yes Loca tion: [facility] odify By: harjeet Mckeon ncounter DateTime : 12/21/19 12 05:11:38 PM Not Available Not Available Not Available Metrogel Vaginal 0.75 % (37.5 mg/5 gram) insert 1 applicat orful by vaginal route every day at bedtime for 5 nights. 04/01 completed Prescrib ed Elsewher e: No Locat ion: [facility] odify By: med Cooper ter DateTime : 04/01/20 19 10:47:21 AM Not Available Not Available Not Available omeprazol e 10 mg capsule,d elayed release take 2 capsule by oral route every day before a meal 08/12 completed Prescrib ed Elsewher e: Yes Loca tion: [facility] odify By: manuel Mckeon ncounter DateTime : 04/23/20 15 08:15:00 AM Not Available Not Available Not Available Zoloft 50 mg tablet take 1 tablet (50MG) by oral route every day 01/22 completed Prescrib ed Elsewher e: No Locat ion: [facility] odify By: mirian thompson DateTime : 12/28/19 13 01:00:00 PM Not Available Not Available Not Available Flagyl 500 mg tablet Take 1 tablet every 12 hours by oral route for 7 days. 2019 active Not Available Not Available Not Avai lable clotrimaz ole-betam ethasone 1 %-0.05 % topical cream APPLY TO THE AFFECTED AND SURROUND ING AREAS OF SKIN BY TOPICAL ROUTE 2 TIMES PER DAY IN THE MORNING AND EVENING FOR 2 WEEKS 2019 active Not Available Not Available Not Avai lable nitroglyc aaron 0.4 mg sublingua l tablet active Not Available Not Available Not Available metoprolo l succinate ER 25 mg tablet,ex tended release 24 hr take 1 tablet by oral route every day active Prescrib ed Elsewher e: Yes Loca tion: [facility] odify By: annamaria Nichols nter DateTime : 12/21/19 12 05:11:38 PM Not Available Not Available Not Available levofloxa rangel 500 mg tablet active Not Available Not Available No t Available estradiol 0.01% (0.1 mg/gram) vaginal cream insert (1G) by vaginal route every evening active Not Available Not Available No t Available methylpre dnisolone 4 mg tablets in a dose pack active Not Available Not Available Not Available Vitamin D2 1,250 mcg (50,000 unit) capsule take 1 capsule by oral route every week active Prescrib ed Elsewher e: Yes Loca tion: [facility] odify By: juan Mckeon ncounter DateTime : 08/23/19 19 02:30:00 PM Not Available Not Available Not Available Terazol 7 0.4 % vaginal cream insert 1 applicat orful by vaginal route every day for 7 days at bedtime 05/31 completed Prescrib ed Elsewher e: No Locat ion: [facility] odify By: annamaria Nichols nter DateTime : 05/25/20 15 11:15:00 AM Not Available Not Available Not Available cefdinir 300 mg capsule 02/06 completed Not Available Not Available Not Available Lipitor 10 mg tablet take 1 tablet by oral route every day active Prescrib ed Elsewher e: Yes Loca tion: [facility] odify By: mirian thompson DateTime : 01/23/20 14 10:30:00 AM Not Available Not Available Not Available amoxicill in 875 mg-potass ium clavulana te 125 mg tablet active Not Available Not Available Not Available Stanback Headache Powder 650 mg oral packet active Prescrib ed Elsewher e: Yes Loca tion: [facility] odify By: annamaria Nichols nter DateTime : 12/21/19 12 05:11:38 PM Not Available Not Available Not Available Vitamins and Minerals tablet active Prescrib ed Elsewher e: Yes Loca tion: [facility] odify By: mirian thompson DateTime : 12/22/19 12 11:00:00 AM Not Available Not Available Not Available Calcium 500 + D 500 mg-5 mcg (200 unit) tablet active Prescrib ed Elsewher e: Yes Loca tion: [facility] odify By: juan Mckeon ncounter DateTime : 08/23/19 19 02:30:00 PM Not Available Not Available Not Available Crestor 5 mg tablet take 2 tablet by oral route every day 01/22 completed Prescrib ed Elsewher e: Yes Loca tion: [facility] odify By: mirian thompson DateTime : 12/21/19 12 05:11:38 PM Not Available Not Available Not Available Boniva 150 mg tablet take 1 tablet (150MG) by oral route every month on the same date; Take with a full glass of water and remain in an upright position for at least 60 minutes. 12/27 completed Prescrib ed Elsewher e: No Locat ion: [facility] odify By: harjeet Mckeon ncounter DateTime : 11/30/19 12 02:54:00 PM Not Available Not Available Not Available Vitamin D3 10 mcg (400 unit) capsule 08/15 completed Prescrib ed Elsewher e: Yes Loca tion: Kyle mckeon [facility] odify By: jcarlos velez DateTime : 01/23/20 14 10:30:00 AM Not Available Not Available Not Available Tirosint 13 mcg capsule take 1 capsule by oral route every day active Prescrib ed Elsewher e: Yes Loca tion: Kyle mckeon [facility] odify By: mirian [email or web address] DateTime : 12/22/19 12 11:00:00 AM Not Available Not Available Not Available Probiotic 10 billion cell capsule 2015 active Prescrib ed Elsewher e: Yes Loca tion: Kyle mckeon [facility] odify By: [email or web address] Mckeon ncounter DateTime : 07/08/19 16 03:00:00 PM Not Available Not Available Not Available Fish Oil 100 mg-160 mg-1,000 mg capsule 02/10 completed Prescrib ed Elsewher e: Yes Loca tion: Kyle mckeon [facility] odify By: bhavya Mckeon ncounter DateTime : 12/21/19 12 05:11:38 PM Not Available Not Available Not Available Vitamin B-12 1,000 mcg/mL oral drops 08/15 completed Prescrib ed Elsewher e: Yes Loca tion: [facility] M odify By: ba velez DateTime : 01/23/20 14 10:30:00 AM Not Available Not Available Not Available Vitals Date Recorded Body height Body mass index (BMI) Body weight Systolic And Diastolic Provider Name and Address Organization Details Last Updated DateTime 02/07/2020 157.48 cm 32.4 kg/m2 45164.85 g 148/82 mm[Hg] [facility] 02/07/2020 12:55:22 Social History None recorded. Functional Status None recorded. Mental Status None recorded. Family History Relationship Description Onset Age of this Age Resolved Age Notes LastModified by Organization Details LastModified Time Mother Diabetes mellitus [email or web address] Not available 2019 12:57:14 Mother Hypertensive disorder [email or web address] Not available 2019 12:57:37 Mother Malignant neoplasm of colon [email or web address] Not available 2019 12:57:50 Father Diabetes mellitus [email or web address] Not available 2019 12:57:14 Father Hypertensive disorder [email or web address] Not available 2019 12:57:37 Father Heart disease [email or web address] Not available 2019 12:59:17 Sister Hypertensive disorder [email or web address] Not available 2019 12:57:37 Brother Malignant neoplasm of pancreas [email or web address] Not available 2019 12:58:07 Notes:Brother: Cancer, pancr eatic Father: Coronary artery disease, Diabetes mellitus, Hypertension Mother: Diabetes mellitus, Hypertension, Cancer, colon Sister: Hypertension Medical History Condition Response Thyroid Problems Y High Cholesterol Y Gynecological History Statement/Question Response Current Control Method Hysterectom y Obstetrics History GPAL:G 0 P 0 0 0 0 Past Encounters Encounter ID Performer Location Encounter Start Date Encounter Closed Date Diagnosis/Indication Diagnosis SNOMED-CT Code Diagnosis ICD10 Code Diagnosis IMO Codes Diagnosis Note [id number] Byron Eastman MD [facility] [address] [address] 02/07/2020 12:41:45 02/09/2020 17:20:12 Urinary tract infectious disease 50216588 N39.0 Vulvovaginitis 83719434 N76.0 this patient is a 69-year-ol d female presents for vulvar irritation white vaginal discharge. She has burning with urination. She has recently been treated for a urinary tract infection. She was treated with antibiotic s. She is examined. There is no erythema. There is white vaginal discharge. There is no bleeding. There is normal vulva and distal vagina. We agreed on treatment with Lotrisone and Diflucan. She will follow up as needed. Health Concerns Section Related Observation LastModified by Organization Detai ls LastModified Time None Recorded Concern Status LastModified by Organization Details LastModified Time None Recorded Advance Directives Directive None Recorded Payers Insurance Date Sequence Insurance Name Policy Number Policy Brunson Covered Member ID Brunson Member ID Guarantor Name 02/07/2020 1 [employer] (PPO) Josefa Curry [id number] Josefa Curry 02/09/2020 [employer] (MEDICARE REPLACEMENT/A DVANTAGE - PPO) Josefa Curry [id number] Josefa Curry Notes Date Note Type Note Provider Name and Address Organization Details Recorded Time 02/07/2020 text/html this patient is a 69-year-old female presents for vulvar irritation white vaginal discharge. She has burning with urination. She has recently been treated for a urinary tract infection. She was treated with antibiotics. She is examined. There is no erythema. There is white vaginal discharge. There is no bleeding. There is normal vulva and distal vagina. We agreed on treatment with Lotrisone and Diflucan. She will follow up as needed. Byron Eastman MD [address], [place], [address], [facility] 02/09/2020 15:43:52 OBGyn Episode Ob Episode Information Episode Created Date Number of Fetuses Patient Bloodtype Patient rh Status Prepregnancy Weight lbs Domestic Partner Domestic Partner Phone Father Name Insulation Cupola Charger Status 02/07/20 20 1 CLOSED Fetus Data First Name Last Name Admitted to NICU Weight (g) Sex Living Outcome Pediatric Complications Fetus ID Race Codes Race Delivery Type [id number] Vaginal Delivery Marcin Calculation Initial Marcin Date Initial Exam Date Initial Exam Provider Initial Ultrasound Date Last Menstrual Period Date Ultra Sound Weeks Gestation 0 Eighteen To Twenty Week Marcin Update Ultra Sound Date Fundal Height At Umbil Quickening Date Ultra Sound Latest Weeks Gestation Final Marcin Confirmed By Final Marcin Confirmed Date Final Marcin Date Ultra Sound Latest Days Gestation 0 0 Menstrual History Last Menstrual Date Menses Monthly On Bcp Conception Prior Menses Frequency Hcg Plus Date Menarche Onset Age Delivery Information Delivery Date Delivery Type Labor Anesthesia Weeks Gestation Incision Type Labor Labor Length Hrs Delivered By Post Complications Tubal Sterilization Discharge Date Comments 2 Discharge Information Feeding Method Contraceptive Method Maternal HG B and HCT Levels Ob Episode Information Episode Created Date Number of Fetuses Patient Bloodtype Patient rh Status Prepregnancy Weight lbs Domestic Partner Domestic Partner Phone Father Name Insulation Cupola Charger Status 02/07/20 20 1 CLOSED Fetus Data First Name Last Name Admitted to NICU Weight (g) Sex Living Outcome Pediatric Complications Fetus ID Race Codes Race Delivery Type [id number] Vaginal Delivery Marcin Calculation Initial Marcin Date Initial Exam Date Initial Exam Provider Initial Ultrasound Date Last Menstrual Period Date Ultra Sound Weeks Gestation 0 Eighteen To Twenty Week Marcin Update Ultra Sound Date Fundal Height At Umbil Quickening Date Ultra Sound Latest Weeks Gestation Final Marcin Confirmed By Final Marcin Confirmed Date Final Marcin Date Ultra Sound Latest Days Gestation 0 0 Menstrual History Last Menstrual Date Menses Monthly On Bcp Conception Prior Menses Frequency Hcg Plus Date Menarche Onset Age Delivery Information Delivery Date Delivery Type Labor Anesthesia Weeks Gestation Incision Type Labor Labor Length Hrs Delivered By Post Complications Tubal Sterilization Discharge Date Comments 9 Discharge Information Feeding Method Contraceptive Method Maternal HG B and HCT Levels
== END 2025-04-30 15:14 | disposition home or self-care (01) ==
PROVIDERS: PCP Family Medicine; Visit Provider Physician Assistant
DX: J02.9 Acute pharyngitis, unspecified (principal); Z20.822 Contact with and (suspected) exposure to COVID-19
CPT/HCPCS: 87637

== ENCOUNTER 2025-05-06 12:04 | Outpatient (CLI) | payer OTHER, SELFPAY ==
--- NOTE | ~2025-05-06 | XR_ITS ---
EXAMINATION: XR chest 2V, 05/06/2025 12:18 HISTORIOGRAPHY TEACHER HISTORY: R05.9 - Cough, unspecified COMPARISON: No comparisons available. Technique: 2 views obtained. Findings: The lungs are clear, no effusion. No pneumothorax. Heart is normal size. Mediastinal and hilar contours are within normal limits. Bony thorax no acute abnormality. Impression: No acute cardiopulmonary abnormality. Reviewed, dictated and finalized at location P. ORIOGRAPHY TEACHER Impression: No acute cardiopulmonary abnormality.
== END 2025-05-06 12:05 | disposition home or self-care (01) ==
PROVIDERS: PCP Family Medicine; Visit Provider Student in an Organized Health Care Education/Training Program
DX: R05.9 Cough, unspecified (principal)
CPT/HCPCS: 71046

== ENCOUNTER 2025-05-13 10:41 | Outpatient (CLI) | payer OTHER, SELFPAY ==
--- NOTE | ~2025-05-13 | MM_ITS ---
EXAMINATION: MM screening jo ann BI w sandra HISTORY: Screening. TECHNIQUE: Craniocaudal and mediolateral oblique 3-D tomosynthesis images were obtained and synthetic 2-D images were generated. CAD analysis was submitted and interpreted. COMPARISON: 2023, 2022, and 2021 BREAST PARENCHYMAL COMPOSITION: Dense: The breasts are heterogeneously dense FINDINGS: No suspicious masses are seen. There are no suspicious calcifications. No unexplained architectural distortion is seen. There are no skin or nipple abnormalities identified. There is no adenopathy seen on the images submitted. IMPRESSION: No mammographic evidence to suggest malignancy is seen. The patient may return to screening mammography as per ACR guidelines. BI-RADS 1 - Negative. Reviewed, dictated and finalized at location B. ZING MACHINE OPERATOR HEAD END
== END 2025-05-13 10:42 | disposition home or self-care (01) ==
PROVIDERS: PCP Family Medicine; Visit Provider Obstetrics & Gynecology Gynecology
DX: Z12.31 Encounter for screening mammogram for malignant neoplasm of breast (principal)
CPT/HCPCS: 77063; 77067